=== PATIENT | female | born 1975 | race Caucasian/White ===

== ENCOUNTER 2016-02-16 12:08 | Inpatient (IN) | payer MEDICARE, MEDICAID ==
[~2016-02-16] VITALS: Ht 147.3 cm; Wt 47.9 kg
[~2016-02-16 12:08] MED LIST: *MAYHAVE; /LANS30GR; /MOM400 PO; /ONDA4TA; /SUCR1TA; CLARINEX PO; COLACE PO; FERR325T3 PO; OMEP20CA3 PO; PRIL20CA PO; TESS100C PO; TESSALO100 PO; TYLE325T5 PO; [UNRECOGNIZED DRUG - SUPPLY]; [UNRECOGNIZED DRUG - SUPPLY]; [UNRECOGNIZED DRUG - SUPPLY] [1,]
[2016-02-16] MEDS ORDERED: PANTOPRAZOLE 40MG INJ (PROTONIX) (C9113) As Ordered ONE ×2 (13:19→22:02)
[2016-02-16] MEDS ORDERED: ONDANSETRON 4MG/2ML VIAL (J2405) As Ordered ONE (13:20)
[2016-02-16] MEDS ORDERED: FERR325T3 PO (14:01)
[2016-02-16] MEDS ORDERED: OMEP20CA3 PO (14:01)
[2016-02-16 14:22] LABS: BASO % 0.2 % (0.0-1.0); EOS # 0.1 K/mm3 (0.0-0.50); EOS % 1.6 % (0.0-3.0); LARGE UNSTAINED CELL # 0.2 K/mm3 (0.0-0.4); LARGE UNSTAINED CELL % 2.7 % (0.0-4.0); LYMPH # 1.2 K/mm3 (1.5-4.5); LYMPH % 20.7 % (24.0-44.0); MEAN CORPUSCULAR HEMOGLOBIN 28.6 pg (27.0-33.0); MEAN CORPUSCULAR HGB CONC 33.7 g/dl (32.0-36.5); MEAN CORPUSCULAR VOLUME 84.7 fl (80.0-96.0); MONO # 0.2 K/mm3 (0.0-0.8); NEUTROPHILS % 70.7 % (36.0-66.0); PLATELET COUNT, AUTOMATED 320 k/mm3 (150-450); RED CELL DISTRIBUTION WIDTH 12.6 % (11.5-14.5); WHITE BLOOD COUNT 5.7 K/mm3 (4.0-10.0)
[2016-02-16 14:30] LABS: INR 1.24
[2016-02-16 14:39] LABS: ALBUMIN 3.1 GM/DL (3.2-5.2); ALBUMIN/GLOBULIN RATIO 0.94 (1.00-1.93); ALKALINE PHOSPHATASE 69 U/L (45-117); ALT/SGPT 14 U/L (12-78); ANION GAP 8 MEQ/L (8-16); AST/SGOT 6 U/L (15-37); BILIRUBIN,DIRECT < 0.1 MG/DL (0.0-0.2); BILIRUBIN,TOTAL 0.2 MG/DL (0.2-1.0); BLOOD UREA NITROGEN 12 MG/DL (7-18); CALCIUM LEVEL 7.9 MG/DL (8.5-10.1); CARBON DIOXIDE LEVEL 26 MEQ/L (21-32); CHLORIDE LEVEL 110 MEQ/L (98-107); CREATININE FOR GFR 0.55 MG/DL (0.55-1.02); GLOMERULAR FILTRATION RATE > 60.0 (>60); GLUCOSE, FASTING 92 MG/DL (70-105); POTASSIUM SERUM 3.9 MEQ/L (3.5-5.1); SODIUM LEVEL 144 MEQ/L (136-145); TOTAL PROTEIN 6.4 GM/DL (6.4-8.2)
[2016-02-16] MEDS: NS 1,000 ML IV SCH (15:07)
[2016-02-16] MEDS ORDERED: ONDANSETRON 4MG/2ML VIAL (J2405) IV PRN (15:15)
[2016-02-16] MEDS ORDERED: MORPHINE 2 MG/ML 1ML SYRINGE IV PRN (15:15)
[2016-02-16] MEDS ORDERED: ACETAMINOPHEN TAB 650MG DOSE (2X325MG) PO PRN (15:15)
--- NOTE | 2016-02-16 16:46 | REP ---
KUB: Single view. History: Abdominal pain. Small bowel obstruction. Comparison study June 10, 2008. Findings: The patient is rotated to the right. EKG monitoring electrodes overlie the abdomen. There is a ventriculoperitoneal shunt catheter looped or coiled within the right abdomen. There are several loops of air-filled but nondilated small bowel in the central abdomen. Air and stool is seen in a nondistended colon. The bowel gas pattern is felt to be unremarkable. Impression: Right ventriculoperitoneal shunt catheter noted. Normal bowel gas pattern. Signed by Denver Eldridge MD 02/16/2016 04:37 P
--- NOTE | 2016-02-16 17:11 | REP ---
Portable supine chest x-ray: Single view. History: Tachycardia. Comparison study: March 07, 2013. Findings: There is a heavily calcified tubing related to a ventriculoperitoneal shunt tubing projecting over the right chest as before. EKG monitoring electrodes overlie the chest. The lungs are symmetrically aerated and free of infiltrate. Cardiomediastinal silhouette is unremarkable. Impression: No active cardiopulmonary disease. Signed by Denver Eldridge MD 02/16/2016 05:35 P
--- NOTE | 2016-02-16 18:41 | HPE ---
DATE OF ADMISSION: TIME PATIENT WAS SEEN: 1500 PRIMARY CARE PROVIDER: Elizabeth Ramsey CHIEF COMPLAINT: Nausea and vomiting, and abdominal pain. HISTORY OF PRESENT ILLNESS: A 40-year-old female with a past medical history of cerebral palsy, hydrocephalus and a ventriculoperitoneal (WRAPPER AND PRESERVER) shunt, severe erosive esophagitis, gastroesophageal reflux disease (GERD. Also esophageal ulcer on esophagogastroduodenoscopy (EGD) in 2008, chronic anemia, presented with nausea, vomiting, and abdominal pain. Per patient's mother, it started about a week ago; however, it got much worse this morning. Patient had at least eight coffee-ground emesis this morning. She also has pain in the left lower quadrant. In addition, she has not had a bowel movement since Thursday. Last Thursday, patient's mother gave patient enema, which helped to produce a small amount of bowel movement; however, per patient, she has not passed any flatus since Thursday , and she has not been eating or drinking much over the past few days. Otherwise, patient denies any fevers or chills, any chest pain, trouble breathing, any problem with urination. ALLERGIES: No known drug allergies. HOME MEDICATIONS: - ferrous sulfate 325 mg one tablet by mouth twice a day - omeprazole 20 mg one tablet daily PAST SURGICAL HISTORY: Includes WRAPPER AND PRESERVER shunt placement. PAST MEDICAL HISTORY: As stated above, includin. Cerebral palsy. 2 Hydrocephalus and a WRAPPER AND PRESERVER shunt. 3. GERD. 4. Chronic anemia. 5. Severe erosive esophagitis and esophageal ulcer on esophagogastroduodenoscopy (EGD) 2008. 6. Hiatal hernia. 7. History of septic shock. SOCIAL HISTORY: Patient lives at home with her parents. Has been mostly bed- bound for years. Denies any smoking, drinking, or recreational drug use. FAMILY HISTORY: Father has diabetes. REVIEW OF SYSTEMS: GENERAL: Patient denies any weight changes, any fevers or chills, any recent traveling, sick contacts. HEENT: Denies any changes with vision, smell, hearing, taste. CARDIOVASCULAR: Denies any chest pain, trouble breathing. PULMONARY: Denies any trouble breathing. GASTROINTESTINAL: Admits to abdominal pains and also nausea and vomiting, coffee-ground emesis. Denies any diarrhea. Admits to constipation, not having had a bowel movement for the past 5 days. Denies any flatus. GENITOURINARY: Denies any problem with urination, any blood in the urine, burning on urination. MUSCULOSKELETAL: Denies any pain anywhere; however, patient does have contractions due to cerebral palsy and being bed-bound ENDOCRINE: Denies any diabetes or cold or heat intolerance. HEMATOLOGIC/ONCOLOGIC: Denies any bleeding or easy bruising. PSYCHIATRIC: Patient does have a somewhat underlying possibly mental retarding due to cerebral palsy. Otherwise denies any anxiety or depression. NEUROLOGIC: Patient does have hydrocephalus, had a WRAPPER AND PRESERVER shunt, and has contractions in all four extremities; however, she denies any change in sensation. PHYSICAL EXAMINATION: VITAL SIGNS: Blood pressure 151/94, pulse 108, respirations 20, temperature 97.8 , oxygen was saturating at 95% on room air. Weight was 47 kg, height was 165 cm. GENERAL: Patient is a thin-looking young female who was alert, awake, oriented times three, however, has slurred speech from cerebral palsy and has contractions of all four extremities. Appears to have at least mild mental retardation. HEENT: Normocephalic, atraumatic. Extraocular motor intact. Mucosa moist. NECK: Supple. No neck lymphadenopathy. CARDIOVASCULAR: Tachycardic, S1, S2. No murmurs. LUNGS: Clear to auscultation bilaterally. No wheezes, rales, or rhonchi. ABDOMEN: Positive bowel sounds. Soft, tender to palpation in left lower quadrant. Otherwise no peritoneal signs. No ecchymosis. EXTREMITIES: No edema, clubbing, or cyanosis. SKIN: Warm and dry. NEUROLOGIC: Cranial nerves II-XII intact. Patient has contractions in all four extremities; otherwise no focal neurologic deficit noted. LABORATORY DATA: WBC 5.7, hemoglobin 12.0, hematocrit 35.7 with platelet count of 320 and MCV of 84.7. Sodium 144, potassium 3.9, chloride 110, bicarbonate 26, BUN 12, creatinine 0.55 , GFR greater than 60, fasting glucose 92, calcium 7.9, magnesium 2. Total bilirubin 0.2, direct bilirubin 0.1, AST 6, ALT 14, alkaline phosphatase 69, total protein 6.4, albumin 3.1. PT 15.7, INR 1.24, PTT 31.3. Chest x-ray has been ordered. Shows normal chest. No active disease. Kidneys, ureter, bladder (KUB) has been ordered, and so far preliminary shows right WRAPPER AND PRESERVER shunt catheter noted. Normal bowel-gas pattern. Official result is pending. ASSESSMENT AND PLAN: A 40-year-old female with past medical history of cerebral palsy, hydrocephalus with a WRAPPER AND PRESERVER shunt, gastroesophageal reflux disease (GERD) , chronic anemia, severe erosive esophagitis and esophageal ulcer on EGD 2008, presented with: 1. Nausea, vomiting with coffee-ground emesis, possible gastrointestinal (GI) bleed. Patient has been placed nothing by mouth. Fecal occult has been ordered. General surgery has been consulted. We appreciated Dr. Gallego's help. Patient had a KUB that showed normal bowel-gas pattern; however, she has been vomiting non-stop since the morning, and nasogastric (NG) tube was placed with a 150 mL of coffee-ground emesis output. She ended up not able to tolerate the NG tube, which has to be removed. Otherwise, will continue patient on 100 mL per hour of normal saline and will continue to follow general surgery recommendations. Pain management with morphine 1 mg intravenous (IV) every 2 hours as needed and continue Zofran and 40 mg of IV Protonix twice a day. Continue to monitor patient's output and will perform serial abdominal exams. 2. Cerebral palsy and hydrocephalus with a WRAPPER AND PRESERVER shunt. Will continue aspiration precautions. Due to patient does not seem to be able to protect her airway due to she does not move well herself and her limbs are contracted. She also does seem to have at least mild mental retardation from cerebral palsy. Will continue to monitor her closely. 3. Severe erosive esophagitis and esophageal ulcer on esophagogastroduodenoscopy (EGD) 2008. Also hiatal hernia and GERD. Will continue IV Protonix and continue to monitor patient. Will place patient nothing by mouth at this moment. 4. Chronic anemia. Hemoglobin is 12; however, due to coffee-ground emesis, will trend the patient's hemoglobin and hematocrit every 6 hours until tomorrow. General surgery has been consulted. Will continue to monitor. Will hold off on any anticoagulation for now and place patient on sequential compression devices (SCDs). 5. Deep vein thrombosis (DVT) prophylaxis with SCDs and thromboembolic deterrent stockings (TEDS) only for now. DISPOSITION: Patient has coffee-ground emesis, possible gastrointestinal (GI) bleed, possible small-bowel obstruction. General surgery, Dr. Gallego, has been consulted. Will follow his recommendations. Patient has been discussed with attending doctor, Dr. Ballard. My preceptor for this patient encounter was Dr. Elizabeth Ballard. The preceptor was physically present in the building during the encounter and was fully available as needed. All aspects of the patient interview, examination, medical decision making process, and medical care plan development were reviewed and approved by the preceptor. The preceptor is aware and concurs with the plan as stated in the body of this note and will attest to such by his/her co-signature. I, Elizabeth Ballard, have seen and examined the above patient and agree with the plan as documented by Dr. Qureshi. SHAWNA
[2016-02-16] MEDS: PANTOPRAZOLE 40MG INJ (PROTONIX) (C9113) IV SCH (21:00)
[2016-02-16] MEDS ORDERED: PANTOPRAZOLE 40MG TAB (PROTONIX) PO SCH (21:00)
--- NOTE | 2016-02-16 23:04 | ECGEPIP ---
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
--- NOTE | 2016-02-16 23:46 | EDDOCDS ---
Physician Documentation [facility] Name: Molly Valera Age: 40 yrs Sex: Female : 1975 Arrival Date: 02/16/2016 Time: 12:08 Bed 5 Private MD: Elizabeth Ramsey PA-C Disposition: 02/15 15:16 Critical Care:. pc Disposition: 02/16/16 15:17 Hospitalization ordered by Elizabeth Ballard for Inpatient Admission. Preliminary diagnosis are Gastrointestinal hemorrhage, unspecified - upper, Tachycardia, unspecified. - Bed requested for M ICU. - Status is Inpatient Admission. yuridia - Condition is Stable. - Problem is new. - Symptoms have improved. HPI: 13:09 This 40 yrs old Female presents to ER via Wheelchair with complaints of pc Nausea/Vomiting. 13:09 The history is obtained from the patient's family/friend. pc 13:10 A reliable history and/or examination was not able to be obtained, due to patient is pc non-verbal. 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 She has had a poor appetite all week, complaining of her stomach hurting. She started to have the same emesis this morning and presents with active coffee-ground emesis. She has had a slight cough but no fevers, and otherwise has been in good health. At their worst, the symptoms were moderate. In the emergency department, the symptoms are unchanged. The patient has not experienced similar symptoms in the past. The patient has been recently seen by their primary care provider, for a routine, regularly scheduled appointment. Historical: - Allergies: no known allergies; - Home Meds: 1. omeprazole 20 mg Oral cpDR 1 cap once daily (Last dose: 02/16/2016 09:00) 2. 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 - Social history: Smoking status: Patient states was never smoker of tobacco. No barriers to communication noted, Speaks appropriately for age. - : The pt / caregiver states he / she is not on anticoagulants. Home medication list is obtained from the caregiver. - Hospitalizations: : No recent hospitalization is reported. - Exposure Risk Screening:: None identified. - Immunization history:: All immunizations up-to-date. - Family history: Not pertinent. - Social history:: the patient is a non-smoker, the patient does not drink alcohol. 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 pc Exam: 13:13 General Appearance: alert, the patient is in mild distress, actively vomiting pc coffee-ground material without dave blood.. 13:13 EENT: normal eye inspection, ears, nose and throat normal, pharynx normal, mucous membranes moist 13:13 Neck: The exam reveals no acute abnormalities. ROM is normal and painless. No nuchal rigidity is noted.. 13:13 Respiratory: no respiratory distress, normal breath sounds. 13:13 CVS: regular rhythm, normal S1 and S2, no murmurs, strong peripheral pulses, the patient is tachycardic, at 128 bpm. 13:13 Abdomen: soft, no organomegaly, normal bowel sounds, mild tenderness in the epigastric area. 13:13 Back: normal inspection. 13:13 Skin: skin color is normal, warm, dry. 13:13 Extremities: The extremities have a grossly normal appearance, are non-tender, without acute ROM abnormalities. 13:13 Neuro: no motor deficits, no sensory deficits. Vital Signs: 12:12 BP 137 / 75; Pulse 128; Resp 20 S; Temp 97.8(T); Pulse Ox 98% on R/A; Weight 47.63 kg / gr2 105.01 lbs (R); Height 5 ft. 5 in. (165.10 cm) (R); Pain 4/10; 12:35 BP 147 / 85 (auto/); dsf 12:36 Pulse 110 MON; Pulse Ox 96% ; dsf 12:50 BP 165 / 109 (auto/); dsf 12:50 Pulse 114 MON; Pulse Ox 90% ; dsf 13:19 Pulse 112 MON; dsf 13:20 BP 131 / 101 (auto/); dsf 13:35 BP 159 / 88 (auto/); dsf 13:35 Pulse 116 MON; Pulse Ox 95% ; dsf 13:50 BP 156 / 94 (auto/); dsf 13:50 Pulse 108 MON; Pulse Ox 93% ; dsf 14:05 BP 153 / 97 (auto/); dsf 14:05 Pulse 108 MON; Pulse Ox 94% ; dsf 14:20 BP 150 / 92 (auto/); dsf 14:20 Pulse 108 MON; Pulse Ox 92% ; dsf 14:35 BP 151 / 94 (auto/); dsf 14:35 Pulse 108 MON; Pulse Ox 95% ; dsf 14:50 BP 158 / 96 (auto/); dsf 14:50 Pulse 104 MON; Pulse Ox 96% ; dsf 15:05 BP 159 / 93 (auto/); dsf 15:05 Pulse 100 MON; Pulse Ox 96% ; dsf 15:20 BP 150 / 101 (auto/); dsf 15:20 Pulse 100 MON; Pulse Ox 94% ; dsf 15:35 BP 156 / 109 (auto/); dsf 15:35 Pulse 128 MON; dsf 15:49 Pulse 150 MON; dsf 15:50 BP 161 / 96 (auto/); dsf 16:05 BP 135 / 80 (auto/); dsf 16:05 Pulse 122 MON; Pulse Ox 94% ; dsf 16:20 BP 132 / 77 (auto/); dsf 16:20 Pulse 110 MON; Pulse Ox 93% ; dsf 16:35 BP 136 / 76 (auto/); dsf 16:35 Pulse 106 MON; Pulse Ox 95% ; dsf 16:50 BP 133 / 79 (auto/); dsf 16:50 Pulse 102 MON; Pulse Ox 94% ; dsf 17:05 BP 140 / 78 (auto/); dsf 17:05 Pulse 100 MON; Pulse Ox 94% ; dsf 17:20 BP 140 / 81 (auto/); dsf 17:20 Pulse 102 MON; Pulse Ox 94% ; dsf 17:35 BP 129 / 78 (auto/); lf1 17:35 Pulse 104 MON; Pulse Ox 95% ; lf1 17:50 BP 136 / 78 (auto/); lf1 17:50 Pulse 100 MON; Pulse Ox 94% ; lf1 18:04 Pulse 100 MON; Pulse Ox 93% ; lf1 18:05 BP 136 / 77 (auto/); lf1 18:19 Pulse 100 MON; Pulse Ox 92% ; lf1 18:20 BP 128 / 69 (auto/); lf1 18:34 Pulse 100 MON; Pulse Ox 92% ; lf1 18:35 BP 120 / 70 (auto/); lf1 18:49 Pulse 104 MON; Pulse Ox 92% ; lf1 18:50 BP 121 / 68 (auto/); lf1 19:02 Pulse 98 MON; Pulse Ox 90% ; lf1 19:05 BP 129 / 67 (auto/); lf1 19:16 Pulse 100 MON; Resp 18; Pulse Ox 90% ; lf1 19:20 BP 128 / 68 (auto/); lf1 19:20 Pulse 100 MON; Pulse Ox 89% ; lf1 19:35 BP 125 / 61 (auto/); lf1 19:35 Pulse 98 MON; Pulse Ox 89% ; lf1 19:50 BP 132 / 68 (auto/); lf1 19:50 Pulse 98 MON; Pulse Ox 88% ; lf1 20:05 BP 138 / 75 (auto/); lf1 20:05 Pulse 104 MON; lf1 20:20 BP 139 / 76 (auto/); lf1 20:20 Pulse 104 MON; lf1 20:35 BP 143 / 80 (auto/); lf1 20:35 Pulse 100 MON; lf1 20:50 BP 135 / 73 (auto/); lf1 20:50 Pulse 100 MON; Pulse Ox 96% ; lf1 21:05 BP 131 / 70 (auto/); lf1 21:05 Pulse 96 MON; Pulse Ox 93% ; lf1 21:20 BP 126 / 67 (auto/); lf1 21:20 Pulse 104 MON; Pulse Ox 93% ; lf1 21:35 BP 129 / 67 (auto/); lf1 21:35 Pulse 102 MON; Pulse Ox 93% ; lf1 21:50 BP 119 / 66 (auto/); lf1 21:50 Pulse 102 MON; Pulse Ox 90% ; lf1 22:05 BP 141 / 72 (auto/); lf1 22:05 Pulse 102 MON; Pulse Ox 91% ; lf1 22:17 Pulse 102 MON; Resp 16; Pulse Ox 90% ; lf1 23:25 BP 119 / 68; Pulse 98; Resp 20; Temp 98.6(TE); Pulse Ox 95% on R/A; jmv 12:12 Body Mass Index 17.47 (47.63 kg, 165.10 cm) gr2 MDM: 13:08 IV Saline Lock ordered. pc 13:08 Pipeline Engineer/Pulse Ox/q 30 min VS ordered. pc 13:08 pantoprazole 80 mg IV at bolus once ordered. pc 13:08 NS 0.9% 1000 ml IV at bolus once ordered. pc 13:08 Ondansetron 4 mg IVP once ordered. pc 13:09 NOTHING BY MOUTH+DIET ordered. EDMS 13:09 CBC with Diff Ordered. EDMS 13:09 MED Profile Ordered. EDMS 13:09 Liver Profile Ordered. EDMS 13:09 Pt & Aptt Ordered. EDMS 13:09 Type & Screen Ordered. EDMS 13:13 Differential Diagnosis: UGI bleed, known esophagitis. Plan: labs, meds, IVF. pc 13:31 [facility] Payment Agreement was scanned into [employer] and attached to record. [id number] 13:32 Financial registration complete. dm19 14:36 CBC with Diff Reviewed. pc 14:36 Pt & Aptt Reviewed. pc 14:47 MED Profile Reviewed. pc 14:47 Liver Profile Reviewed. pc 14:52 BED REQUEST+ADM ordered. EDMS 14:52 Data reviewed: old medical records, vital signs, nurses notes, lab test results, all pc radiology studies and available results. Test interpretation: LAB - all labs as ordered have been reviewed, interpreted and considered in the overall management of the clinical presentation;. 14:54 Chest, 1 View Ordered. EDMS 14:54 ECG WITH READING ER PHYS+CARDIAG ordered. EDMS 15:07 HEMOGLOBIN & HEMATOCRIT Ordered. EDMS 15:07 Test interpretation: EKG. pc 15:16 Test interpretation: X-RAY - interpreted by Radiologist and personally reviewed, 1 view pc chest no acute disease. The patient has been re-examined and re-evaluated. The patient's symptoms have markedly improved after treatment. Physician consultation: Dr. Brian Gallego MD regarding consult, and will see patient in inpatient room. 15:16 Physician consultation: Dr. Elizabeth Ballard regarding admission. Disposition: The historical points, examination findings, and any diagnostic results supporting the provided diagnosis, were discussed with the patient or legal guardian. The need for further work-up and/or treatment in the hospital was explained. 15:30 MAGNESIUM LEVEL Ordered. EDMS 16:02 Abdomen,Flat Plate KUB Ordered. EDMS 16:33 Admission / Observation Status ordered. EDMS 19:31 CBC WITH DIFFERENTIAL Ordered. EDMS 19:32 BASIC METABOLIC PROFILE Ordered. EDMS 19:32 MAGNESIUM LEVEL Ordered. EDMS 19:32 HEMOGLOBIN & HEMATOCRIT Ordered. EDMS 19:32 HEMOGLOBIN & HEMATOCRIT Ordered. EDMS 23:43 MRSA SCREEN Ordered. EDMS EC:07 Rate is 102 beats/min. Rhythm is regular, Sinus tachycardia. QRS [place] is Normal. MD pc interval is normal. QRS interval is normal. QT interval is normal. No Q waves. T waves are Normal. No ST changes noted. Clinical impression: Sinus tachycardia. Administered Medications: 13:25 Drug: NS 0.9% 1000 ml [sodium chloride 0.9 % injection solution] Route: IV; Rate: jf3 bolus; Site: left hand; 17:53 Follow up: IV Status: Completed infusion; IV Intake: 1000ml dsf 13:27 Drug: Ondansetron 4 mg [ondansetron HCl 2 mg/mL intravenous solution (2 mL)] Route: jf3 IVP; Site: left hand; 13:30 Drug: pantoprazole 80 mg [pantoprazole 40 mg intravenous solution] Route: IV; Rate: jf3 bolus; Site: left hand; 18:36 Follow up: IV Status: Completed infusion dsf Critical Care Time: 15:16 Critical care time: Bedside Care: 20 minutes, Consultation: 20 minutes, Family pc Intervention: 10 minutes. Total time: 50 minutes Signatures: Dispatcher [employer] EDNH Brent Nevarez MD MD pc Newman, Jill New, RN RN jan Lopresti, Mary-Elizabeth, Extension Professor Unit ml3 Mali Rivera RN RN jc4 McLear, Diane dm19 Kiki Bailon RN f [place] RN jf3 The chart was reviewed and I authenticate all verbal orders and agree with the evaluation and treatment provided.Corrections: (The following items were deleted from the chart) 15:09 15:07 HEMOGLOBIN & HEMATOCRIT ordered. EDMS EDMS 15:30 15:07 MAGNESIUM LEVEL ordered. EDMS EDMS Attachments: 13:31 [facility] [place] [facility] Payment Agreement [id number]
--- NOTE | 2016-02-16 23:47 | EDDOCDS ---
Nurse's Notes [facility] Name: Lluvia Galarza Age: 40 yrs Sex: Female : 1975 Arrival Date: 02/16/2016 Time: 12:08 Bed 5 Private MD: Elizabeth Ramsey PA-C Diagnosis: Gastrointestinal hemorrhage, unspecified-upper;Tachycardia, unspecified Presentation: 02/15 12:14 Presenting complaint: Mother states: that patient has been vomiting for the past week. jc4 Emesis has coffee ground appearance. Actively vomiting in triage. 12:21 Adult Sepsis Screening: The patient does not have new or worsening altered mentation. jc4 Patient's respiratory rate is less than 22. Systolic blood pressure is greater than 100. Patient has a qSOFA score of 0- Negative Sepsis Screen. Suicide/Homicide risk assessment- the patient denies having any suicidal and/or homicidal ideations and does not present with any other emotional, behavioral or mental health complaints. Status: Patient is not a services coordinator or dependent. Transition of care: patient was not received from another setting of care. 12:21 Acuity: KAUSHIK Level 3 jc4 12:21 Method Of Arrival: Wheelchair jc4 Triage Assessment: 12:20 General: Appears distressed, Behavior is anxious. Pain: Location: abdomen. HIV jc4 screening NA for this visit. SOA ARCHITECT: 12:20 LMP 01/27/2016 jc4 Historical: - Allergies: no known allergies; - Home Meds: 1. omeprazole 20 mg Oral cpDR 1 cap once daily (Last dose: 02/16/2016 09:00) 2. ferrous sulfate 325 mg (65 mg iron) oral TbEC twice a day (Last dose: 02/16/2016 09:00) - PMHx: Anemia; GERD; Hydrocephalus; Severe erosive esophagitis and esophageal ulcers on EGD 2008; Hiatal Hernia; - PSHx: EDUCATIONAL PARAPROFESSIONAL Shunt Placement; - The history from nurses notes was reviewed: and elements of the historical information I have obtained differs from that reported to nursing. - Social history: Smoking status: Patient states was never smoker of tobacco. No barriers to communication noted, Speaks appropriately for age. - : The pt / caregiver states he / she is not on anticoagulants. Home medication list is obtained from the caregiver. - Hospitalizations: : No recent hospitalization is reported. - Exposure Risk Screening:: None identified. - Immunization history:: All immunizations up-to-date. - Family history: Not pertinent. - Social history:: the patient is a non-smoker, the patient does not drink alcohol. Screenin:17 Screening information is obtained from family members. Fall risk: At risk due to lf1 immobility, The following interventions are performed due to a positive Fall Risk Screen: Fall Risk is added to Special Handling on the patient Summary Screen. A Fall Risk Bracelet was applied to the patient. Side Rails are placed in the up position. A Call Brooks is given with instruction to call for help when getting out of bed. Fall Alert bracelet is placed on the patient. Assistance ADL's: Requires assistance with meal preparation, this assistance is provided by family members, bathing, assistance is provided by family members, dressing, assistance is provided by family members, toileting, assistance is provided by family members, ambulation, assistance is provided by family members, housework, assistance is provided by family members, medication administration, assistance is provided by family members. Abuse/DV Screen:. home support is adequate. 23:36 Abuse/DV Screen:. lf1 23:36 Abuse/DV Screen: The patient / caregiver reports he/she is: not in a situation that lf1 causes fear, pain or injury. Nutritional screening: On soft. Advance Directives: Currently, there is a health care proxy, Jessie (mother). Assessment: 12:41 General: Appears in no apparent distress, Behavior is appropriate for age. Pain: dsf Location: abdomen Quality of pain is described as "hurts really bad". Neurological: Level of Consciousness is awake, alert. Cardiovascular: Capillary refill < 3 seconds Heart tones S1 S2 present Rhythm is sinus tachycardia No ectopy. Respiratory: Airway is patent Respiratory effort is even, unlabored, Respiratory pattern is regular, symmetrical, Breath sounds are clear bilaterally. GI: Abdomen is distended, other coffee brown emesis in basin Bowel sounds hypoactive in left upper quadrant and left lower quadrant Abd is soft X 4 quads Abd is tender to palpation in right upper quadrant and left upper quadrant Parent/caregiver reports the patient having vomiting for the past week. mother states it did get better but started again last night. Derm: Skin is pink, warm & dry. 13:41 General: Appears in no apparent distress, Behavior is appropriate for age. dsf Neurological: Level of Consciousness is awake, alert. Cardiovascular: Capillary refill < 3 seconds Rhythm is sinus tachycardia No ectopy. Respiratory: Airway is patent Respiratory effort is even, unlabored, Respiratory pattern is regular, symmetrical. Derm: Skin is pink, warm & dry. 14:42 General: Appears in no apparent distress, Behavior is appropriate for age. General: pt dsf does drawn knees up to abdomen when it hurts . Pain: Location: abdomen. Neurological: Level of Consciousness is awake, alert. Cardiovascular: Capillary refill < 3 seconds Heart tones S1 S2 present Rhythm is sinus tachycardia No ectopy. Respiratory: Airway is patent Respiratory effort is even, unlabored, Respiratory pattern is regular, symmetrical, Breath sounds are clear bilaterally. GI: Abdomen is distended, Bowel sounds present X 4 quads. Abd is soft X 4 quads Abd is tender to palpation in right upper quadrant, left upper quadrant and right lower quadrant. Derm: Skin is pink, warm & dry. 15:48 General: Dr. Qureshi placed a 14 luxembourgish NG tube to left nare. Coffee ground emesis dsf suctioning out of stomach. 15:56 General: Dr. Qureshi removed NG tube pt was producing tons of oral secretions . dsf 16:49 Adult Sepsis Screening: The patient does not have new or worsening altered mentation. dsf Patient's respiratory rate is less than 22. Systolic blood pressure is greater than 100. Patient has a qSOFA score of 0- Negative Sepsis Screen. General: Appears in no apparent distress, Behavior is appropriate for age. Pain: Location: abdomen. Neurological: Level of Consciousness is awake, alert. Cardiovascular: Capillary refill < 3 seconds. Respiratory: Airway is patent Respiratory effort is even, unlabored, Respiratory pattern is regular, symmetrical. Derm: Skin is pink, warm & dry. 17:49 General: Appears in no apparent distress, Behavior is appropriate for age. dsf Neurological: Level of Consciousness is awake, alert. Cardiovascular: Capillary refill < 3 seconds Rhythm is sinus tachycardia No ectopy. Respiratory: Airway is patent Respiratory effort is even, unlabored, Respiratory pattern is regular, symmetrical. Derm: Skin is pink, warm & dry. 18:35 Adult Sepsis Screening: The patient does not have new or worsening altered mentation. dsf Patient's respiratory rate is less than 22. Systolic blood pressure is greater than 100. Patient has a qSOFA score of 0- Negative Sepsis Screen. General: Appears in no apparent distress, Behavior is appropriate for age. Neurological: Level of Consciousness is awake, alert. Cardiovascular: Capillary refill < 3 seconds. Respiratory: Airway is patent Respiratory effort is even, unlabored, Respiratory pattern is regular, symmetrical. Derm: Skin is pink, warm & dry. 19:16 General: Appears in no apparent distress, Behavior is cooperative. Neurological: Level lf1 of Consciousness is awake, alert. Respiratory: Respiratory effort is even, unlabored. GI: Abdomen is distended, Bowel sounds Abd is tender to palpation. Derm: Skin is normal. 20:30 General: Appears in no apparent distress, family at bedside. Neurological: Level of lf1 Consciousness is awake. Respiratory: Respiratory effort is even, unlabored. GI: Abdomen is distended. : Attends in place. Derm: Skin is normal. 22:21 Adult Sepsis Screening: The patient does not have new or worsening altered mentation. lf1 Patient's respiratory rate is less than 22. Systolic blood pressure is greater than 100. Patient has a qSOFA score of 0- Negative Sepsis Screen. General: Appears in no apparent distress. General: family at bedside. Pain: Denies pain. Neurological: Level of Consciousness is awake, alert. Cardiovascular: Rhythm is regular. Respiratory: Respiratory effort is even, unlabored. GI: Abdomen is distended, other no episodes of vomiting since removal of NG tube. 23:36 General: Appears in no apparent distress, Behavior is cooperative. Neurological: Level lf1 of Consciousness is awake, alert. EENT: No deficits noted. Cardiovascular: Rhythm is regular. Respiratory: Respiratory effort is even, unlabored. GI: Abdomen is distended, Bowel sounds. Derm: Skin is normal. Musculoskeletal: contracted. Vital Signs: 12:12 BP 137 / 75; Pulse 128; Resp 20 S; Temp 97.8(T); Pulse Ox 98% on R/A; Weight 47.63 kg gr2 (R); Height 5 ft. 5 in. (165.10 cm) (R); Pain 4/10; 12:35 BP 147 / 85 (auto/); dsf 12:36 Pulse 110 MON; Pulse Ox 96% ; dsf 12:50 BP 165 / 109 (auto/); dsf 12:50 Pulse 114 MON; Pulse Ox 90% ; dsf 13:19 Pulse 112 MON; dsf 13:20 BP 131 / 101 (auto/); dsf 13:35 BP 159 / 88 (auto/); dsf 13:35 Pulse 116 MON; Pulse Ox 95% ; dsf 13:50 BP 156 / 94 (auto/); dsf 13:50 Pulse 108 MON; Pulse Ox 93% ; dsf 14:05 BP 153 / 97 (auto/); dsf 14:05 Pulse 108 MON; Pulse Ox 94% ; dsf 14:20 BP 150 / 92 (auto/); dsf 14:20 Pulse 108 MON; Pulse Ox 92% ; dsf 14:35 BP 151 / 94 (auto/); dsf 14:35 Pulse 108 MON; Pulse Ox 95% ; dsf 14:50 BP 158 / 96 (auto/); dsf 14:50 Pulse 104 MON; Pulse Ox 96% ; dsf 15:05 BP 159 / 93 (auto/); dsf 15:05 Pulse 100 MON; Pulse Ox 96% ; dsf 15:20 BP 150 / 101 (auto/); dsf 15:20 Pulse 100 MON; Pulse Ox 94% ; dsf 15:35 BP 156 / 109 (auto/); dsf 15:35 Pulse 128 MON; dsf 15:49 Pulse 150 MON; dsf 15:50 BP 161 / 96 (auto/); dsf 16:05 BP 135 / 80 (auto/); dsf 16:05 Pulse 122 MON; Pulse Ox 94% ; dsf 16:20 BP 132 / 77 (auto/); dsf 16:20 Pulse 110 MON; Pulse Ox 93% ; dsf 16:35 BP 136 / 76 (auto/); dsf 16:35 Pulse 106 MON; Pulse Ox 95% ; dsf 16:50 BP 133 / 79 (auto/); dsf 16:50 Pulse 102 MON; Pulse Ox 94% ; dsf 17:05 BP 140 / 78 (auto/); dsf 17:05 Pulse 100 MON; Pulse Ox 94% ; dsf 17:20 BP 140 / 81 (auto/); dsf 17:20 Pulse 102 MON; Pulse Ox 94% ; dsf 17:35 BP 129 / 78 (auto/); lf1 17:35 Pulse 104 MON; Pulse Ox 95% ; lf1 17:50 BP 136 / 78 (auto/); lf1 17:50 Pulse 100 MON; Pulse Ox 94% ; lf1 18:04 Pulse 100 MON; Pulse Ox 93% ; lf1 18:05 BP 136 / 77 (auto/); lf1 18:19 Pulse 100 MON; Pulse Ox 92% ; lf1 18:20 BP 128 / 69 (auto/); lf1 18:34 Pulse 100 MON; Pulse Ox 92% ; lf1 18:35 BP 120 / 70 (auto/); lf1 18:49 Pulse 104 MON; Pulse Ox 92% ; lf1 18:50 BP 121 / 68 (auto/); lf1 19:02 Pulse 98 MON; Pulse Ox 90% ; lf1 19:05 BP 129 / 67 (auto/); lf1 19:16 Pulse 100 MON; Resp 18; Pulse Ox 90% ; lf1 19:20 BP 128 / 68 (auto/); lf1 19:20 Pulse 100 MON; Pulse Ox 89% ; lf1 19:35 BP 125 / 61 (auto/); lf1 19:35 Pulse 98 MON; Pulse Ox 89% ; lf1 19:50 BP 132 / 68 (auto/); lf1 19:50 Pulse 98 MON; Pulse Ox 88% ; lf1 20:05 BP 138 / 75 (auto/); lf1 20:05 Pulse 104 MON; lf1 20:20 BP 139 / 76 (auto/); lf1 20:20 Pulse 104 MON; lf1 20:35 BP 143 / 80 (auto/); lf1 20:35 Pulse 100 MON; lf1 20:50 BP 135 / 73 (auto/); lf1 20:50 Pulse 100 MON; Pulse Ox 96% ; lf1 21:05 BP 131 / 70 (auto/); lf1 21:05 Pulse 96 MON; Pulse Ox 93% ; lf1 21:20 BP 126 / 67 (auto/); lf1 21:20 Pulse 104 MON; Pulse Ox 93% ; lf1 21:35 BP 129 / 67 (auto/); lf1 21:35 Pulse 102 MON; Pulse Ox 93% ; lf1 21:50 BP 119 / 66 (auto/); lf1 21:50 Pulse 102 MON; Pulse Ox 90% ; lf1 22:05 BP 141 / 72 (auto/); lf1 22:05 Pulse 102 MON; Pulse Ox 91% ; lf1 22:17 Pulse 102 MON; Resp 16; Pulse Ox 90% ; lf1 23:25 BP 119 / 68; Pulse 98; Resp 20; Temp 98.6(TE); Pulse Ox 95% on R/A; jmv 12:12 Body Mass Index 17.47 (47.63 kg, 165.10 cm) gr2 Vitals: 12:12 Log In Time: February 16, 2016 at 12:12. RN notified that patient meets Red Flag gr2 criteria. ED Course: 12:12 Patient visited by Hailey Cha. gr2 12:12 Elizabeth Ramsey is Private Physician. gr2 12:12 Patient moved to Waiting gr2 12:14 Patient visited by Hailey Cha. gr2 12:14 Patient moved to Pre RCE gr2 12:22 Triage Initiated jc4 12:26 Patient moved to 5 dem1 12:42 Inserted saline lock: 20 gauge in left hand The patient tolerated the procedure well. dsf 12:43 Patient visited by Kiki Bailon RN. dsf 12:43 Patient visited by Kiki Bailon RN. dsf 12:43 The patient / caregiver is instructed regarding the plan of care and ED course. Patient dsf has correct armband on for positive identification. Placed in gown. Bed in low position. Call light in reach. Side rails up X2. shelter monitor on. Pulse ox on. NIBP on. 13:07 Brent Nevarez MD is Attending Physician. pc 13:07 Patient visited by Brent Nevarez MD. pc 13:31 [facility] Payment Agreement was scanned into [employer] and attached to record. dm19 13:40 Patient visited by Bar Groves RN. jf3 14:20 Type & Screen Sent. dsf 14:20 Pt & Aptt Sent. dsf 14:20 Liver Profile Sent. dsf 14:20 MED Profile Sent. dsf 14:20 CBC with Diff Sent. dsf 14:40 Patient visited by Zarina Wong PCA. ct3 14:44 Patient visited by Kiki Bailon RN. dsf 15:08 EKG done. (by ED staff). Reviewed by Brent Nevarez MD. ct3 15:10 Patient visited by Zarina Wong PCA. ct3 15:17 Elizabeth Ballard is Hospitalizing Provider. pc 15:56 Patient visited by Kiki Bailon RN. dsf 16:50 Patient visited by Kiki Bailon RN. dsf 16:59 Patient moved to Admit Hold kpj 17:10 Abdomen,Flat Plate KUB Returned. EDMS 17:29 Patient visited by Kiki Bailon RN. dsf 17:51 Chest, 1 View Returned. EDMS 17:52 Patient visited by Kiki Bailon RN. dsf 18:36 Patient visited by Kiki Bailon RN. dsf 19:05 Patient visited by Abhishek Calloway PCA. kb5 19:20 Patient visited by Aleida Benoit RN. lf1 20:38 Patient moved to 5 ml3 22:02 Patient visited by Abhishek Calloway PCA. kb5 22:18 Patient visited by Aleida Benoit RN. lf1 22:21 Turned pillows under back and between legs. lf1 22:23 Patient visited by Aleida Benoit RN. lf1 23:26 Patient visited by Dylan Mai PCA. jmv 23:36 No procedures done that require assistance. lf1 23:42 EKG-ADULT Returned. EDMS Administered Medications: 13:25 Drug: NS 0.9% 1000 ml [sodium chloride 0.9 % injection solution] Route: IV; Rate: jf3 bolus; Site: left hand; 17:53 Follow up: IV Status: Completed infusion; IV Intake: 1000ml dsf 13:27 Drug: Ondansetron 4 mg [ondansetron HCl 2 mg/mL intravenous solution (2 mL)] Route: jf3 IVP; Site: left hand; 13:30 Drug: pantoprazole 80 mg [pantoprazole 40 mg intravenous solution] Route: IV; Rate: jf3 bolus; Site: left hand; 18:36 Follow up: IV Status: Completed infusion dsf Intake: 17:53 IV: 1000.00ml; Total: 1000.00ml. dsf Order Results: Lab Order: CBC with Diff; SPEC'M 02/16/16 14:18 Test: WHITE BLOOD COUNT; Value: 5.7; Range: 4.0-10.0; Units: K/mm3; Status: F Test: RED BLOOD COUNT; Value: 4.21; Range: 4.00-5.40; Units: M/mm3; Status: F Test: HEMOGLOBIN; Value: 12.0; Range: 12.0-16.0; Units: g/dl; Status: F Test: HEMATOCRIT; Value: 35.7; Range: 36.0-47.0; Abnormal: Below low normal; Units: %; Status: F Test: MEAN CORPUSCULAR VOLUME; Value: 84.7; Range: 80.0-96.0; Units: fl; Status: F Test: MEAN CORPUSCULAR HEMOGLOBIN; Value: 28.6; Range: 27.0-33.0; Units: pg; Status: F Test: MEAN CORPUSCULAR HGB CONC; Value: 33.7; Range: 32.0-36.5; Units: g/dl; Status: F Test: RED CELL DISTRIBUTION WIDTH; Value: 12.6; Range: 11.5-14.5; Units: %; Status: F Test: PLATELET COUNT, AUTOMATED; Value: 320; Range: 150-450; Units: k/mm3; Status: F Test: NEUTROPHILS %; Value: 70.7; Range: 36.0-66.0; Abnormal: Above high normal; Units: %; Status: F Test: LYMPH %; Value: 20.7; Range: 24.0-44.0; Abnormal: Below low normal; Units: %; Status: F Test: MONO %; Value: 4.0; Range: 0.0-5.0; Units: %; Status: F Test: EOS %; Value: 1.6; Range: 0.0-3.0; Units: %; Status: F Test: BASO %; Value: 0.2; Range: 0.0-1.0; Units: %; Status: F Test: LARGE UNSTAINED CELL %; Value: 2.7; Range: 0.0-4.0; Units: %; Status: F Test: NEUTROPHILS #; Value: 4.0; Range: 1.8-7.7; Units: K/mm3; Status: F Test: LYMPH #; Value: 1.2; Range: 1.5-4.5; Abnormal: Below low normal; Units: K/mm3; Status: F Test: MONO #; Value: 0.2; Range: 0.0-0.8; Units: K/mm3; Status: F Test: EOS #; Value: 0.1; Range: 0.0-0.50; Units: K/mm3; Status: F Test: BASO #; Value: 0.0; Range: 0.0-0.2; Units: K/mm3; Status: F Test: LARGE UNSTAINED CELL #; Value: 0.2; Range: 0.0-0.4; Units: K/mm3; Status: F Lab Order: MED Profile; SPEC02/16/16 14:17 Test: GLUCOSE, FASTING; Value: 92; Range: 70-105; Units: MG/DL; Status: F Test: BLOOD UREA NITROGEN; Value: 12; Range: 7-18; Units: MG/DL; Status: F Test: CREATININE FOR GFR; Value: 0.55; Range: 0.55-1.02; Units: MG/DL; Status: F Test: GLOMERULAR FILTRATION RATE; Value: > 60.0; Range: >60; Status: F Test: SODIUM LEVEL; Value: 144; Range: 136-145; Units: MEQ/L; Status: F Test: POTASSIUM SERUM; Value: 3.9; Range: 3.5-5.1; Units: MEQ/L; Status: F Test: CHLORIDE LEVEL; Value: 110; Range: 98-107; Abnormal: Above high normal; Units: MEQ/L; Status: F Test: CARBON DIOXIDE LEVEL; Value: 26; Range: 21-32; Units: MEQ/L; Status: F Test: ANION GAP; Value: 8; Range: 8-16; Units: MEQ/L; Status: F Test: CALCIUM LEVEL; Value: 7.9; Range: 8.5-10.1; Abnormal: Below low normal; Units: MG/DL; Status: F Test Note: ; Units are mL/min/1.73 m2 Chronic Kidney Disease Staging per NKF: Stage I & II GFR >=60 Normal to Mildly Decreased Stage III GFR 30-59 Moderately Decreased Stage IV GFR 15-29 Severely Decreased Stage V GFR <15 Very Little GFR Left ESRD GFR <15 on [employer] Test: MAGNESIUM LEVEL; Range: 1.8-2.4; Units: MG/DL; Status: I Lab Order: Liver Profile; SPEC'02/16/16 14:17 Test: AST/SGOT; Value: 6; Range: 15-37; Abnormal: Below low normal; Units: U/L; Status: F Test: ALT/SGPT; Value: 14; Range: 12-78; Units: U/L; Status: F Test: ALKALINE PHOSPHATASE; Value: 69; Range: 45-117; Units: U/L; Status: F Test: BILIRUBIN,TOTAL; Value: 0.2; Range: 0.2-1.0; Units: MG/DL; Status: F Test: BILIRUBIN,DIRECT; Value: < 0.1; Range: 0.0-0.2; Units: MG/DL; Status: F Test: TOTAL PROTEIN; Value: 6.4; Range: 6.4-8.2; Units: GM/DL; Status: F Test: ALBUMIN; Value: 3.1; Range: 3.2-5.2; Abnormal: Below low normal; Units: GM/DL; Status: F Test: ALBUMIN/GLOBULIN RATIO; Value: 0.94; Range: 1.00-1.93; Abnormal: Below low normal; Status: F Lab Order: Pt & Aptt; [facility] 02/16/16 14:18 Test: PROTHROMBIN TIME; Value: 15.7; Range: 12.3-14.5; Abnormal: Above high normal; Units: SECONDS; Status: F Test: INR; Value: 1.24; Status: F Test: PARTIAL THROMBOPLASTIN TIME; Value: 31.3; Range: 26.6-37.1; Units: SECONDS; Status: F Test Note: ; THERAPUTIC HUMAN INR VALUES INDICATIONS NORMAL RANGES PROPHYLAXIS/TREATMENT OF: VENOUS THROMBOSIS 2.0-3.0 PULMONARY EMBOLISM 2.0-3.0 PREVENTION OF SYSTEMIC EMBOLISM FROM: TISSUE HEART VALVES 2.0-3.0 ACUTE MYOCARDIAL INFARCTION 2.0-3.0 VALVULAR HEART DISEASE 2.0-3.0 ATRIAL FIBRILLATION 2.0-3.0 MECHANICAL VALVES(HIGH RISK) 2.5-3.5 RECURRENT MYOCARDIAL INFARCTION 2.5-3.5 Lab Order: Type & Screen; [facility] 02/16/16 14:17 Test: BLOOD TYPE; Value: A NEG; Status: F Test: AB SCREEN (INDIRECT JF)GEL; Value: NEGATIVE; Status: F Lab Order: HEMOGLOBIN & HEMATOCRIT; SPEC'M 02/16/16 20:47 Test: HEMOGLOBIN; Value: 10.7; Range: 12.0-16.0; Abnormal: Below low normal; Units: g/dl; Status: F Test: HEMATOCRIT; Value: 32.3; Range: 36.0-47.0; Abnormal: Below low normal; Units: %; Status: F Lab Order: MAGNESIUM LEVEL; SPEC'M 02/16/16 14:17 Test: MAGNESIUM LEVEL; Value: 2.0; Range: 1.8-2.4; Units: MG/DL; Status: F Radiology Order: Chest, 1 View Test: Chest, 1 View REASON FOR EXAMINATION: tachycardia; Portable supine chest x-ray: Single view.; ; History: Tachycardia.; ; Comparison study: March 07, 2013.; ; Findings: There is a heavily calcified tubing related to a ventriculoperitoneal; shunt tubing projecting over the right chest as before. EKG monitoring; electrodes overlie the chest. The lungs are symmetrically aerated and free of; infiltrate. 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 Small bowel obstruction.; ; Comparison study June 10, 2008.; ; Findings: The patient is rotated to the right. EKG monitoring electrodes; overlie the abdomen. There is a ventriculoperitoneal shunt catheter looped or; coiled within the right abdomen. There are several loops of air-filled but; nondilated small bowel in the central abdomen. Air and stool is seen in a; nondistended colon. The bowel gas pattern is felt to be unremarkable.; ; Impression:; ; Right ventriculoperitoneal shunt catheter noted. Normal bowel gas pattern.; ; ; Signed by; Denver Eldridge MD 02/16/2016 04:37 P; Outcome: 15:17 Decision to Hospitalize by Provider. 23:41 Discharge Assessment: patient administered narcotics - no. The following High Risk yuridia Discharge criteria are identified: None. Admitted to PCU accompanied by nurse, via stretcher, on monitor, with chart. Condition: improved. No special radiology studies were completed. Property :Personal belongings accompany Pt. 23:46 Patient left the ED. yuridia Signatures: Dispatcher [employer] EDMS Brent Nevarez MD MD pc Jobson, Karen, RN RN kpj Newman, Awilda Scanlon RN Lisseth Murillo, Pipe Bending Machine Operator Unit ml3 Abhishek Calloway, SCHOOL SERVICES OFFICER SCHOOL SERVICES OFFICER kb5 Aleida BenoitRN RN lf1 Mali Rivera RN RN jc4 Zarina Wong, SCHOOL SERVICES OFFICER SCHOOL SERVICES OFFICER ct3 Kiki Bailon,RN RN dsf Javon Tillman dem1 Hailey Cha gr2 Bar Groves,RN RN jf3 Dylan Mai, SCHOOL SERVICES OFFICER SCHOOL SERVICES OFFICER jmv Rosalie Cleary dm19 Corrections: (The following items were deleted from the chart) 12:22 12:14 Presenting complaint: Mother states: that patient has been vomiting for the past jc4 week. [place] has coffee ground appearance. Actively vomiting in triage jc4 14:38 12:41 GI: Abdomen is distended, Bowel sounds hypoactive in left upper quadrant and left dsf lower quadrant Abd is soft X 4 quads Abd is tender to palpation in right upper quadrant and left upper quadrant Parent/caregiver reports the patient having vomiting for the past week. mother states it did get better but started again last night dsf MTDD
[2016-02-16 23:50] VITALS: BP 131/91
[2016-02-17 04:00] VITALS: BP 122/64
[2016-02-17] MEDS: NS 1,000 ML IV SCH ×3 (04:16→22:42)
[2016-02-17 04:50] LABS: BASO % 0.8 % (0.0-1.0); EOS # 0.1 K/mm3 (0.0-0.50); EOS % 2.7 % (0.0-3.0); LARGE UNSTAINED CELL # 0.1 K/mm3 (0.0-0.4); LARGE UNSTAINED CELL % 1.4 % (0.0-4.0); LYMPH # 1.4 K/mm3 (1.5-4.5); LYMPH % 29.5 % (24.0-44.0); MEAN CORPUSCULAR HEMOGLOBIN 27.6 pg (27.0-33.0); MEAN CORPUSCULAR HGB CONC 31.8 g/dl (32.0-36.5); MEAN CORPUSCULAR VOLUME 86.8 fl (80.0-96.0); MONO # 0.2 K/mm3 (0.0-0.8); MONO % 5.4 % (0.0-5.0); NEUTROPHILS # 2.7 K/mm3 (1.8-7.7); NEUTROPHILS % 60.3 % (36.0-66.0); PLATELET COUNT, AUTOMATED 347 k/mm3 (150-450); RED CELL DISTRIBUTION WIDTH 13.4 % (11.5-14.5); WHITE BLOOD COUNT 4.5 K/mm3 (4.0-10.0)
[2016-02-17 05:00] LABS: ANION GAP 10 MEQ/L (8-16); BLOOD UREA NITROGEN 8 MG/DL (7-18); CALCIUM LEVEL 7.7 MG/DL (8.5-10.1); CARBON DIOXIDE LEVEL 22 MEQ/L (21-32); CHLORIDE LEVEL 114 MEQ/L (98-107); CREATININE FOR GFR 0.44 MG/DL (0.55-1.02); GLOMERULAR FILTRATION RATE > 60.0 (>60); GLUCOSE, FASTING 76 MG/DL (70-105); POTASSIUM SERUM 3.7 MEQ/L (3.5-5.1); SODIUM LEVEL 146 MEQ/L (136-145)
[2016-02-17] MEDS: ACETAMINOPHEN 650 MG SUPP PR PRN (06:38)
[2016-02-17 08:00] VITALS: BP 115/66
[2016-02-17] MEDS: SUCRALFATE SUSP 1GM/10ML UD PO SCH ×4 (09:12→20:55)
[2016-02-17] MEDS: PANTOPRAZOLE 40MG INJ (PROTONIX) (C9113) IV SCH ×2 (09:12→20:55)
[2016-02-17] MEDS ORDERED: FLEET ENEMA PR ONE (11:00)
[2016-02-17 12:00] VITALS: BP_SYST 110; BP_SYST 118; BP_DIAS 59; BP_DIAS 61
[2016-02-17] MEDS: DOCUSATE SOD LIQ 100MG/10ML UDC PO SCH ×2 (12:21→20:55)
[2016-02-17] MEDS: SENNA 8.6 MG TAB (SENOKOT) PO SCH ×2 (12:27→20:55)
--- NOTE | 2016-02-17 14:01 | CR ---
DATE OF CONSULTATION: 02/17/2016 INDICATION FOR CONSULTATION: Coffee-ground emesis with a history of erosive esophagitis as well as gastritis. HISTORY OF PRESENT ILLNESS: The patient is a 40-year-old white female who has a history of severe erosive esophagitis with esophageal ulcers, gastroesophageal reflux disease, and chronic anemia who a week ago started having crampy abdominal pain and on the day of admission had multiple episodes of vomiting, some of which had coffee-ground emesis. The patient was having some problems with constipation and has not had a bowel movement for 1 week. She has had no fevers or chills. No diarrhea issues. She does have a chronic history of constipation issues. She had an upper endoscopy by Dr. Nails in 2008 which showed a large hiatal hernia, superficial esophageal ulcers and esophagitis. She has been on a proton pump inhibitor, but has had chronic anemia. I do not see any colonoscopies in her history or barium enemas for this chronic anemia. She has had the CAT scan of abdomen and pelvis, but it has been a couple years since the last CAT scan with significant obstipation appreciated on that study. Her hematocrit has decreased over the last 24 hours, but is relatively stable at 10.1 this morning. PAST MEDICAL HISTORY: Significant for history of cerebral palsy, history of hydrocephalus and VASCULAR SURGEON shunt, history of GE reflux disease, history of chronic anemia, history of erosive esophagitis with history of esophageal ulcers, history of hiatal hernia, history of septic shock. MEDICATIONS: Include iron tablets daily and omeprazole 20 mg by mouth daily. PHYSICAL EXAMINATION: Reveals a 40-year-old individual with advanced cerebral palsy (CP) who has some significant upper airway congestion and rhonchorous noises. She does not have any complaints. Mother is present who is helping with history and overall status. HEENT: Unremarkable except for the presentation of probable moderate mental retardation associated with the cerebral palsy. Lungs reveal some rhonchi bilaterally, mostly upper airway sounds. Heart is regular. Abdomen is soft, nontender. No guarding and no rebound is appreciated. IMPRESSION AND PLAN: The patient has a normal white count and thus infectious etiology seems less likely. She has had a KUB, but did not undergo a CAT scan given noncompliance issues, which did not show fecal impaction. Thus, issues at this time. 1. Anemia. Question of hematemesis or is this the iron that occurred with this vomiting. With her history of esophagitis, I do feel that it is most reasonable to start her on proton pump inhibitors (PPIs) twice a day, Carafate as well, and further evaluation of the upper GI tract. This, given her respiratory issues and overall contractions, my concern is that she is a relatively poor operative risk and obtaining an upper GI is a reasonable first start for her. If this shows esophagitis or inflammatory changes consistent with gastritis, then aggressive treatment with the proton pumps and Carafate as an outpatient should be adequate. 2. Chronic constipation. She has some chronic constipation. Keeping her on some stool softeners is a reasonable option for her as well. However, at some point in the future, if she is deemed a better operative candidate or reasonable operative candidate, upper and lower endoscopy is reasonable for her. At this point, once again, she is stable. She is not hypotensive. She is not actively bleeding. From a GI standpoint, I would recommend aggressive treatment for possible upper GI source of this hematemesis. It is reasonable that she be transferred to progressive care unit (PCU) or the floor if she hemodynamically stays stable. Also, start her on a clear liquid diet advancing to a full liquid diet is also reasonable at this time.
--- NOTE | 2016-02-17 14:57 | IPNPDOC ---
Text Note Date of Service The patient was seen on 02/17/16 at 14:36. NOTE Subjective: Patient is a 40 year old female with PMHx of cerebral palsy, hydrocephalus - s/ p MOTOR RUNNER shunt, severe erosive esophagitis and esophageal ulcer, GERD and chronic anemia who presented to the ED with vomiting of coffee ground material and abdominal pain. Patient was also noted to have constipation. She was admitted for possible upper GI bleed and placed on telemetry. Patient was seen and examined at the bedside. Clinically she does not appear to be in any distress, does have some abdominal discomfort. Objective: Vitals (See below) General: Lying in bed, no acute distress, comfortable, awake + alert HEENT: NC, AT CVS: RRR, +S1S2 Lungs: Fair air entry b/l, -w/r/r Abdomen: Soft, ND, mild diffuse tenderness, +BSx4 Extremities; +PPx4, -edema, - calf tenderness Assessment and plan: 1. Acute blood loss anemia - possibly 2/2 acute upper GI bleed - possibly 2/2 esophagitis / esophageal ulcer / gastric ulcer - Presented with coffee ground emesis and abdominal pain - Has had EGD done in 2008 with esophagitis and esophageal ulcers - Remains hemodynamically stable - Hg has trended down since admission - possibly 2/2 dilutional component as well - Will continue to monitor for signs of bleeding and follow H&H q6 hours - will c/w Protonix IV BID, and Carafate - NPO diet has been advanced to clears - Has been evaluated by surgery (Dr. Gallego) - appreciate their input --- Possible EGD to be done tomorrow (02/17) AM 2. Abdominal pain - possibly 2/2 constipation or possibly gastric ulcer - will give trial of stool softeners and fleet enema - will evaluate for BM 3. Spastic quadriplegic, Cerebral palsy and hydrocephalus - s/p MOTOR RUNNER shunt - c/w aspiration precautions 4. Chronic anemia 5. GI prophylaxis - c/w protonix 6. DVT prophylaxis - c/w SCD VS,Fishbone, I+O VS, Fishbone, I+O Laboratory Tests 02/16/16 20:47 02/17/16 04:16 Calcium Level 7.7 L, Red Blood Count 3.67 L, Mean Corpuscular Volume 86.8, Mean Corpuscular Hemoglobin 27.6, Mean Corpuscular Hemoglobin Concent 31.8 L, Red Cell Distribution Width 13.4, Neutrophils (%) (Auto) 60.3, Lymphocytes (%) (Auto ) 29.5, Monocytes (%) (Auto) 5.4 H, Eosinophils (%) (Auto) 2.7, Basophils (%) ( Auto) 0.8, Neutrophils # (Auto) 2.7, Lymphocytes # (Auto) 1.4 L, Monocytes # ( Auto) 0.2, Eosinophils # (Auto) 0.1, Basophils # (Auto) 0.0 02/17/16 11:55 Vital Signs Date Time Temp Pulse Resp B/P Pulse Ox O2 Delivery O2 Flow Rate FiO2 02/17/16 12:00 Room Air 02/17/16 12:00 98.1 89 18 110/61 96 I&O- Last 24 Hours up to 6 AM 02/17/16 06:00 Intake Total 600 ml Balance 600 ml FABRICIO NESS MD Feb 17, 2016 14:57
[2016-02-17 16:00] VITALS: BP 115/71
[2016-02-17 16:01] LABS: RETIC HEMOGLOBIN CONTENT CHr 26.9 PG (24-36); RETICULOCYTE % ADVIA2120 3.2 % (0.5-1.5)
[2016-02-17 16:05] LABS: FERRITIN 8 NG/ML (8-252); PERCENT SATURATION 21.9 % (13.2-37.4); TOTAL IRON BINDING CAPACITY 301 UG/DL (250-450)
[2016-02-17 20:44] VITALS: BP 113/89
[2016-02-18] VITALS: BP 134/86
[2016-02-18 04:00] VITALS: BP 115/63
[2016-02-18 04:52] LABS: BASO % 0.5 % (0.0-1.0); EOS # 0.2 K/mm3 (0.0-0.50); EOS % 3.3 % (0.0-3.0); LARGE UNSTAINED CELL # 0.1 K/mm3 (0.0-0.4); LARGE UNSTAINED CELL % 1.6 % (0.0-4.0); LYMPH # 1.1 K/mm3 (1.5-4.5); LYMPH % 23.2 % (24.0-44.0); MEAN CORPUSCULAR HGB CONC 31.6 g/dl (32.0-36.5); MEAN CORPUSCULAR VOLUME 85.5 fl (80.0-96.0); MONO # 0.2 K/mm3 (0.0-0.8); MONO % 3.9 % (0.0-5.0); NEUTROPHILS # 3.1 K/mm3 (1.8-7.7); NEUTROPHILS % 67.4 % (36.0-66.0); PLATELET COUNT, AUTOMATED 307 k/mm3 (150-450); RED CELL DISTRIBUTION WIDTH 12.4 % (11.5-14.5); WHITE BLOOD COUNT 4.6 K/mm3 (4.0-10.0)
[2016-02-18 05:06] LABS: ANION GAP 13 MEQ/L (8-16); BLOOD UREA NITROGEN 3 MG/DL (7-18); CARBON DIOXIDE LEVEL 20 MEQ/L (21-32); CHLORIDE LEVEL 113 MEQ/L (98-107); CREATININE FOR GFR 0.36 MG/DL (0.55-1.02); GLOMERULAR FILTRATION RATE > 60.0 (>60); GLUCOSE, FASTING 73 MG/DL (70-105); MAGNESIUM LEVEL 1.8 MG/DL (1.8-2.4); POTASSIUM SERUM 3.5 MEQ/L (3.5-5.1); SODIUM LEVEL 146 MEQ/L (136-145)
[2016-02-18] MEDS: ACETAMINOPHEN 650 MG SUPP PR PRN (05:35)
[2016-02-18] MEDS: SUCRALFATE SUSP 1GM/10ML UD PO SCH ×2 (07:58→12:00)
[2016-02-18] MEDS: NS 1,000 ML IV SCH (07:58)
[2016-02-18 08:00] VITALS: BP 117/74
[2016-02-18] MEDS: DOCUSATE SOD LIQ 100MG/10ML UDC PO SCH (09:58)
[2016-02-18] MEDS: SENNA 8.6 MG TAB (SENOKOT) PO SCH (09:58)
[2016-02-18] MEDS: PANTOPRAZOLE 40MG INJ (PROTONIX) (C9113) IV SCH (09:58)
[2016-02-18 10:12] LABS: VITAMIN B12 LEVEL 858 PG/ML
[2016-02-18 10:13] LABS: FOLATE 3.4 NG/ML
[2016-02-18] MEDS ORDERED: E-Z-PAQUE 96% w/w SUSP 176GM BTL As Ordered ONE (10:41)
[2016-02-18 14:30] VITALS: BP 118/71
[2016-02-18] MEDS ORDERED: DOCU10ELUD PO (15:21)
[2016-02-18] MEDS ORDERED: PROT1TAB2 PO (15:21)
[2016-02-18] MEDS ORDERED: SENN1TAB4 PO (15:21)
[2016-02-18] MEDS ORDERED: SUCR1SS PO (15:21)
[2016-02-18] MEDS ORDERED: DOCU100T8 PO (15:53)
--- NOTE | 2016-02-18 17:40 | REP ---
UPPER GI AIR CONTRAST AND SMALL BOWEL FOLLOW-THROUGH: The procedure was performed under the direct supervision of Dr. Eldridge. The images were reviewed with Dr. Eldridge. The consulting intern film shows no organomegaly or pathological masses. The intestinal gas pattern is nonspecific. There is a ventriculoperitoneal shunt catheter looped or coiled within the right abdomen. Liquid barium was given in the supine oblique position. The oral and pharyngeal stages of deglutition are unremarkable. 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 During esophageal transport there are tertiary waves demonstrated. There is no evidence of esophagitis, stricture, or mucosal ring. There is a hiatal hernia present. There is significant gastroesophageal reflux demonstrated to the level of the thoracic inlet. The stomach is grossly normal. The rugal fold are smooth and regular. There is no evidence of gastritis, neoplasm or ulcer disease. The duodenum is grossly normal. The mucosal folds are smooth and regular. There is no evidence of duodenitis, pancreatitis, peptic ulcer disease, or neoplasm. The visualized portion of the proximal small bowel appears normal in course and caliber. The barium column was followed through the small bowel to the level of the terminal ileum. Small bowel transit time was approximately 90 minutes. During fluoroscopy gentle palpation shows all loops are freely movable and pliable. There are no fixed or angulated loops. The small bowel mucosal pattern appears normal in course and caliber. There is no transition to suggest a partial small bowel obstruction. The terminal ileum and cecum lie high within the right abdomen. Spot filming of the terminal ileum shows it to be unremarkable. IMPRESSION: 1. There is cricopharyngeal hypertrophy. 2. There is a hiatal hernia present. There is gastroesophageal reflux demonstrated to the level of the thoracic inlet. 3. Esophageal dysmotility. 3 minutes and 5 seconds of fluoroscopy time was utilized for this procedure. Reviewed by KEV Hughes 02/19/2016 11:11 AEdited and Signed by Denver Eldridge MD 02/19/2016 12:19 P
--- NOTE | 2016-02-18 17:58 | DSES ---
DATE OF ADMISSION: 02/16/2016 DATE OF DISCHARGE: 02/18/2016 PRIMARY CARE PHYSICIAN: Dr. Elizabeth Ramsey. REFERRING PHYSICIAN: None. CONSULTING PHYSICIAN: Dr. Gallego. CONDITION ON DISCHARGE: Stable. FINAL DIAGNOSIS: Nausea and vomiting possibly secondary to constipation and esophagitis. PROCEDURES: None. HISTORY OF PRESENT ILLNESS: The patient is a 40-year-old female with a past medical history of cerebral palsy, hydrocephalus status post ventriculoperitoneal (DIRECTOR OF CODING) shunt, severe erosive esophagitis and esophageal ulcer, gastroesophageal reflux disease (GERD), and chronic anemia, who presented to the emergency department with vomiting of coffee-ground material and abdominal pain. The patient was also noted to have constipation. She was admitted for possible upper gastrointestinal (GI) bleed and placed on telemetry. HOSPITAL COURSE: 1. Acute blood loss anemia, possibly secondary to dilution, possibly secondary to acute upper GI bleed, possibly secondary to esophagitis/esophageal ulcers/ gastric ulcer. Presented with coffee-ground emesis and abdominal pain. The patient had an esophagogastroduodenoscopy (EGD) done in 2008, which revealed esophagitis and esophageal ulcer. She remains hemodynamically stable. Hemoglobin has trended down throughout the admission; however, this could be possibly due to dilution. Hemoglobin remains over the last 48 hours. The patient has not required any blood transfusion. The patient was started on Protonix intravenous (IV) twice a day and Carafate. She has been on nothing by mouth diet and has been advanced and has been tolerating. The patient was evaluated by surgery, Dr. Gallego. Appreciate his input. The patient had an upper GI series which revealed a hiatal hernia with significant reflux seen to the level of the thoracic inlet. Otherwise was unremarkable. Case was discussed with Dr. Gallego. The patient is a moderate risk for sedation and we will avoid EGD at this time. We will continue with conservative management with Protonix twice a day and Carafate. We will get surgical followup in 1-2 weeks. 2. Abdominal pain possibly secondary to constipation. Has been given multiple stool softeners as an inpatient and Fleet enema. She has had a large volume bowel movement yesterday. Has had some relief of abdominal pain. 3. Spastic quadriplegia, Cerebral palsy and hydrocephalus, status post DIRECTOR OF CODING shunt. Continue with aspiration precautions. 4. Chronic anemia. 5. GI prophylaxis. Continue with Protonix. 6. Deep venous thrombosis (DVT) prophylaxis. Continue with sequential compression devices. DISCHARGE MEDICATIONS: The patient will be discharged home with the following: - docusate 100 mg by mouth twice a day - Protonix 40 mg by mouth twice a day - Senna two tablets by mouth twice a day as needed for constipation - Carafate 1 gram by mouth before meals and at bedtime - ferrous sulfate 325 mg by mouth twice a day DISCHARGE INSTRUCTIONS: The patient is advised to followup with the primary care provider and surgery, Dr. Gallego, within the next 1-2 weeks. She is advised to call to confirm/schedule appointment and return to the emergency room if she experiences any problems. She is advised to remain compliant with treatment plan and medications. TIME SPENT ON DISCHARGE: 35 minutes. [place]
--- NOTE | 2016-02-19 12:05 | EDDOCDS ---
Nurse's Notes [facility] Name: Lluvia Galarza Age: 40 yrs Sex: Female : 1975 Arrival Date: 02/16/2016 Time: 12:08 Bed 5 Private MD: Elizabeth Ramsey PA-C Diagnosis: Gastrointestinal hemorrhage, unspecified-upper;Tachycardia, unspecified Presentation: 02/15 12:14 Presenting complaint: Mother states: that patient has been vomiting for the past week. jc4 Emesis has coffee ground appearance. Actively vomiting in triage. 12:21 Adult Sepsis Screening: The patient does not have new or worsening altered mentation. jc4 Patient's respiratory rate is less than 22. Systolic blood pressure is greater than 100. Patient has a qSOFA score of 0- Negative Sepsis Screen. Suicide/Homicide risk assessment- the patient denies having any suicidal and/or homicidal ideations and does not present with any other emotional, behavioral or mental health complaints. 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 Transition of care: patient was not received from another setting of care. 12:21 Acuity: KAUSHIK Level 3 jc4 12:21 Method Of Arrival: Wheelchair jc4 Triage Assessment: 12:20 General: Appears distressed, Behavior is anxious. Pain: Location: abdomen. HIV jc4 screening NA for this visit. 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 omeprazole 20 mg Oral cpDR 1 cap once daily (Last dose: 02/16/2016 09:00) 2. 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 - Social history: Smoking status: Patient states was never smoker of tobacco. No barriers to communication noted, Speaks appropriately for age. - : The pt / caregiver states he / she is not on anticoagulants. Home medication list is obtained from the caregiver. - Hospitalizations: : No recent hospitalization is reported. - Exposure Risk Screening:: None identified. - Immunization history:: All immunizations up-to-date. - Family history: Not pertinent. - Social history:: the patient is a non-smoker, the patient does not drink alcohol. Screenin:17 Screening information is obtained from family members. Fall risk: At risk due to lf1 immobility, The following interventions are performed due to a positive Fall Risk Screen: Fall Risk is added to Special Handling on the patient Summary Screen. A Fall Risk Bracelet was applied to the patient. Side Rails are placed in the up position. A Call Brooks is given with instruction to call for help when getting out of bed. Fall Alert bracelet is placed on the patient. Assistance ADL's: Requires assistance with meal preparation, this assistance is provided by family members, bathing, assistance is provided by family members, dressing, assistance is provided by family members, toileting, assistance is provided by family members, ambulation, assistance is provided by family members, housework, assistance is provided by family members, medication administration, assistance is provided by family members. Abuse/DV Screen:. home support is adequate. 23:36 Abuse/DV Screen:. lf1 23:36 Abuse/DV Screen: The patient / caregiver reports he/she is: not in a situation that lf1 causes fear, pain or injury. Nutritional screening: On soft. Advance Directives: Currently, there is a health care proxy, Jessie (mother). Assessment: 12:41 General: Appears in no apparent distress, Behavior is appropriate for age. Pain: dsf Location: abdomen Quality of pain is described as "hurts really bad". Neurological: Level of Consciousness is awake, alert. Cardiovascular: Capillary refill < 3 seconds Heart tones S1 S2 present Rhythm is sinus tachycardia No ectopy. Respiratory: Airway is patent Respiratory effort is even, unlabored, Respiratory pattern is regular, symmetrical, Breath sounds are clear bilaterally. GI: Abdomen is distended, other coffee brown emesis in basin Bowel sounds hypoactive in left upper quadrant and left lower quadrant Abd is soft X 4 quads Abd is tender to palpation in right upper quadrant and left upper quadrant Parent/caregiver reports the patient having vomiting for the past week. mother states it did get better but started again last night. Derm: Skin is pink, warm & dry. 13:41 General: Appears in no apparent distress, Behavior is appropriate for age. dsf Neurological: Level of Consciousness is awake, alert. Cardiovascular: Capillary refill < 3 seconds Rhythm is sinus tachycardia No ectopy. Respiratory: Airway is patent Respiratory effort is even, unlabored, Respiratory pattern is regular, symmetrical. Derm: Skin is pink, warm & dry. 14:42 General: Appears in no apparent distress, Behavior is appropriate for age. General: pt dsf does drawn knees up to abdomen when it hurts . Pain: Location: abdomen. Neurological: Level of Consciousness is awake, alert. Cardiovascular: Capillary refill < 3 seconds Heart tones S1 S2 present Rhythm is sinus tachycardia No ectopy. Respiratory: Airway is patent Respiratory effort is even, unlabored, Respiratory pattern is regular, symmetrical, Breath sounds are clear bilaterally. GI: Abdomen is distended, Bowel sounds present X 4 quads. Abd is soft X 4 quads Abd is tender to palpation in right upper quadrant, left upper quadrant and right lower quadrant. Derm: Skin is pink, warm & dry. 15:48 General: Dr. Qureshi placed a 14 turkmen NG tube to left nare. Coffee ground emesis dsf suctioning out of stomach. 15:56 General: Dr. Qureshi removed NG tube pt was producing tons of oral secretions . dsf 16:49 Adult Sepsis Screening: The patient does not have new or worsening altered mentation. dsf Patient's respiratory rate is less than 22. Systolic blood pressure is greater than 100. Patient has a qSOFA score of 0- Negative Sepsis Screen. General: Appears in no apparent distress, Behavior is appropriate for age. Pain: Location: abdomen. Neurological: Level of Consciousness is awake, alert. Cardiovascular: Capillary refill < 3 seconds. Respiratory: Airway is patent Respiratory effort is even, unlabored, Respiratory pattern is regular, symmetrical. Derm: Skin is pink, warm & dry. 17:49 General: Appears in no apparent distress, Behavior is appropriate for age. dsf Neurological: Level of Consciousness is awake, alert. Cardiovascular: Capillary refill < 3 seconds Rhythm is sinus tachycardia No ectopy. Respiratory: Airway is patent Respiratory effort is even, unlabored, Respiratory pattern is regular, symmetrical. Derm: Skin is pink, warm & dry. 18:35 Adult Sepsis Screening: The patient does not have new or worsening altered mentation. dsf Patient's respiratory rate is less than 22. Systolic blood pressure is greater than 100. Patient has a qSOFA score of 0- Negative Sepsis Screen. General: Appears in no apparent distress, Behavior is appropriate for age. Neurological: Level of Consciousness is awake, alert. Cardiovascular: Capillary refill < 3 seconds. Respiratory: Airway is patent Respiratory effort is even, unlabored, Respiratory pattern is regular, symmetrical. Derm: Skin is pink, warm & dry. 19:16 General: Appears in no apparent distress, Behavior is cooperative. Neurological: Level lf1 of Consciousness is awake, alert. Respiratory: Respiratory effort is even, unlabored. GI: Abdomen is distended, Bowel sounds Abd is tender to palpation. Derm: Skin is normal. 20:30 General: Appears in no apparent distress, family at bedside. Neurological: Level of lf1 Consciousness is awake. Respiratory: Respiratory effort is even, unlabored. GI: Abdomen is distended. : Attends in place. Derm: Skin is normal. 22:21 Adult Sepsis Screening: The patient does not have new or worsening altered mentation. lf1 Patient's respiratory rate is less than 22. Systolic blood pressure is greater than 100. Patient has a qSOFA score of 0- Negative Sepsis Screen. General: Appears in no apparent distress. General: family at bedside. Pain: Denies pain. Neurological: Level of Consciousness is awake, alert. Cardiovascular: Rhythm is regular. Respiratory: Respiratory effort is even, unlabored. GI: Abdomen is distended, other no episodes of vomiting since removal of NG tube. 23:36 General: Appears in no apparent distress, Behavior is cooperative. Neurological: Level lf1 of Consciousness is awake, alert. EENT: No deficits noted. Cardiovascular: Rhythm is regular. Respiratory: Respiratory effort is even, unlabored. GI: Abdomen is distended, Bowel sounds. Derm: Skin is normal. Musculoskeletal: contracted. Vital Signs: 12:12 BP 137 / 75; Pulse 128; Resp 20 S; Temp 97.8(T); Pulse Ox 98% on R/A; Weight 47.63 kg gr2 (R); Height 5 ft. 5 in. (165.10 cm) (R); Pain 4/10; 12:35 BP 147 / 85 (auto/); dsf 12:36 Pulse 110 MON; Pulse Ox 96% ; dsf 12:50 BP 165 / 109 (auto/); dsf 12:50 Pulse 114 MON; Pulse Ox 90% ; dsf 13:19 Pulse 112 MON; dsf 13:20 BP 131 / 101 (auto/); dsf 13:35 BP 159 / 88 (auto/); dsf 13:35 Pulse 116 MON; Pulse Ox 95% ; dsf 13:50 BP 156 / 94 (auto/); dsf 13:50 Pulse 108 MON; Pulse Ox 93% ; dsf 14:05 BP 153 / 97 (auto/); dsf 14:05 Pulse 108 MON; Pulse Ox 94% ; dsf 14:20 BP 150 / 92 (auto/); dsf 14:20 Pulse 108 MON; Pulse Ox 92% ; dsf 14:35 BP 151 / 94 (auto/); dsf 14:35 Pulse 108 MON; Pulse Ox 95% ; dsf 14:50 BP 158 / 96 (auto/); dsf 14:50 Pulse 104 MON; Pulse Ox 96% ; dsf 15:05 BP 159 / 93 (auto/); dsf 15:05 Pulse 100 MON; Pulse Ox 96% ; dsf 15:20 BP 150 / 101 (auto/); dsf 15:20 Pulse 100 MON; Pulse Ox 94% ; dsf 15:35 BP 156 / 109 (auto/); dsf 15:35 Pulse 128 MON; dsf 15:49 Pulse 150 MON; dsf 15:50 BP 161 / 96 (auto/); dsf 16:05 BP 135 / 80 (auto/); dsf 16:05 Pulse 122 MON; Pulse Ox 94% ; dsf 16:20 BP 132 / 77 (auto/); dsf 16:20 Pulse 110 MON; Pulse Ox 93% ; dsf 16:35 BP 136 / 76 (auto/); dsf 16:35 Pulse 106 MON; Pulse Ox 95% ; dsf 16:50 BP 133 / 79 (auto/); dsf 16:50 Pulse 102 MON; Pulse Ox 94% ; dsf 17:05 BP 140 / 78 (auto/); dsf 17:05 Pulse 100 MON; Pulse Ox 94% ; dsf 17:20 BP 140 / 81 (auto/); dsf 17:20 Pulse 102 MON; Pulse Ox 94% ; dsf 17:35 BP 129 / 78 (auto/); lf1 17:35 Pulse 104 MON; Pulse Ox 95% ; lf1 17:50 BP 136 / 78 (auto/); lf1 17:50 Pulse 100 MON; Pulse Ox 94% ; lf1 18:04 Pulse 100 MON; Pulse Ox 93% ; lf1 18:05 BP 136 / 77 (auto/); lf1 18:19 Pulse 100 MON; Pulse Ox 92% ; lf1 18:20 BP 128 / 69 (auto/); lf1 18:34 Pulse 100 MON; Pulse Ox 92% ; lf1 18:35 BP 120 / 70 (auto/); lf1 18:49 Pulse 104 MON; Pulse Ox 92% ; lf1 18:50 BP 121 / 68 (auto/); lf1 19:02 Pulse 98 MON; Pulse Ox 90% ; lf1 19:05 BP 129 / 67 (auto/); lf1 19:16 Pulse 100 MON; Resp 18; Pulse Ox 90% ; lf1 19:20 BP 128 / 68 (auto/); lf1 19:20 Pulse 100 MON; Pulse Ox 89% ; lf1 19:35 BP 125 / 61 (auto/); lf1 19:35 Pulse 98 MON; Pulse Ox 89% ; lf1 19:50 BP 132 / 68 (auto/); lf1 19:50 Pulse 98 MON; Pulse Ox 88% ; lf1 20:05 BP 138 / 75 (auto/); lf1 20:05 Pulse 104 MON; lf1 20:20 BP 139 / 76 (auto/); lf1 20:20 Pulse 104 MON; lf1 20:35 BP 143 / 80 (auto/); lf1 20:35 Pulse 100 MON; lf1 20:50 BP 135 / 73 (auto/); lf1 20:50 Pulse 100 MON; Pulse Ox 96% ; lf1 21:05 BP 131 / 70 (auto/); lf1 21:05 Pulse 96 MON; Pulse Ox 93% ; lf1 21:20 BP 126 / 67 (auto/); lf1 21:20 Pulse 104 MON; Pulse Ox 93% ; lf1 21:35 BP 129 / 67 (auto/); lf1 21:35 Pulse 102 MON; Pulse Ox 93% ; lf1 21:50 BP 119 / 66 (auto/); lf1 21:50 Pulse 102 MON; Pulse Ox 90% ; lf1 22:05 BP 141 / 72 (auto/); lf1 22:05 Pulse 102 MON; Pulse Ox 91% ; lf1 22:17 Pulse 102 MON; Resp 16; Pulse Ox 90% ; lf1 23:25 BP 119 / 68; Pulse 98; Resp 20; Temp 98.6(TE); Pulse Ox 95% on R/A; jmv 12:12 Body Mass Index 17.47 (47.63 kg, 165.10 cm) gr2 Vitals: 12:12 Log In Time: February 16, 2016 at 12:12. RN notified that patient meets Red Flag gr2 criteria. ED Course: 12:12 Patient visited by Hailey Cha. gr2 12:12 Elizbaeth Ramsey is Private Physician. gr2 12:12 Patient moved to Waiting gr2 12:14 Patient visited by Hailey Cha. gr2 12:14 Patient moved to Pre RCE gr2 12:22 Triage Initiated jc4 12:26 Patient moved to 5 dem1 12:42 Inserted saline lock: 20 gauge in left hand The patient tolerated the procedure well. dsf 12:43 Patient visited by Kiik Bailon RN. dsf 12:43 Patient visited by Kiki Bailon RN. dsf 12:43 The patient / caregiver is instructed regarding the plan of care and ED course. Patient dsf has correct armband on for positive identification. Placed in gown. Bed in low position. Call light in reach. Side rails up X2. 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 Pulse ox on. NIBP on. 13:07 Brent Nevarez MD is Attending Physician. pc 13:07 Patient visited by Brent Nevarez MD. pc 13:31 [facility] Payment Agreement was scanned into [employer] and attached to record. dm19 13:40 Patient visited by Bar Groves RN. jf3 14:20 Type & Screen Sent. dsf 14:20 Pt & Aptt Sent. dsf 14:20 Liver Profile Sent. dsf 14:20 MED Profile Sent. dsf 14:20 CBC with Diff Sent. dsf 14:40 Patient visited by Zarina Wong PCA. ct3 14:44 Patient visited by Kiki Bailon RN. dsf 15:08 EKG done. (by ED staff). Reviewed by Brent Nevarez MD. ct3 15:10 Patient visited by Zarina Wong PCA. ct3 15:17 Elizabeth Ballard is Hospitalizing Provider. pc 15:56 Patient visited by Kiki Bailon RN. dsf 16:50 Patient visited by Kiki Bailon RN. dsf 16:59 Patient moved to Admit Hold kpj 17:10 Abdomen,Flat Plate KUB Returned. EDMS 17:29 Patient visited by Kiki Bailon RN. dsf 17:51 Chest, 1 View Returned. EDMS 17:52 Patient visited by Kiki Bailon RN. dsf 18:36 Patient visited by Kiki Bailon RN. dsf 19:05 Patient visited by Abhishek Calloway PCA. kb5 19:20 Patient visited by Aleida Benoit RN. lf1 20:38 Patient moved to 5 ml3 22:02 Patient visited by Abhishek Calloway PCA. kb5 22:18 Patient visited by Aleida Benoit RN. lf1 22:21 Turned pillows under back and between legs. lf1 22:23 Patient visited by Aleida Benoit RN. lf1 23:26 Patient visited by Dylan Mai PCA. jmv 23:36 No procedures done that require assistance. lf1 23:42 EKG-ADULT Returned. EDMS 02/16 09:12 ECG/EKG was scanned into [employer] and attached to record. gb Administered Medications: 02/15 13:25 Drug: NS 0.9% 1000 ml [sodium chloride 0.9 % injection solution] Route: IV; Rate: jf3 bolus; Site: left hand; 17:53 Follow up: IV Status: Completed infusion; IV Intake: 1000ml dsf 13:27 Drug: Ondansetron 4 mg [ondansetron HCl 2 mg/mL intravenous solution (2 mL)] Route: jf3 IVP; Site: left hand; 13:30 Drug: pantoprazole 80 mg [pantoprazole 40 mg intravenous solution] Route: IV; Rate: jf3 bolus; Site: left hand; 18:36 Follow up: IV Status: Completed infusion dsf Intake: 17:53 IV: 1000.00ml; Total: 1000.00ml. dsf Order Results: Lab Order: CBC with Diff; SPEC'M 02/16/16 14:18 Test: WHITE BLOOD COUNT; Value: 5.7; Range: 4.0-10.0; Units: K/mm3; Status: F Test: RED BLOOD COUNT; Value: 4.21; Range: 4.00-5.40; Units: M/mm3; Status: F Test: HEMOGLOBIN; Value: 12.0; Range: 12.0-16.0; Units: g/dl; Status: F Test: HEMATOCRIT; Value: 35.7; Range: 36.0-47.0; Abnormal: Below low normal; Units: %; Status: F Test: MEAN CORPUSCULAR VOLUME; Value: 84.7; Range: 80.0-96.0; Units: fl; Status: F Test: MEAN CORPUSCULAR HEMOGLOBIN; Value: 28.6; Range: 27.0-33.0; Units: pg; Status: F Test: MEAN CORPUSCULAR HGB CONC; Value: 33.7; Range: 32.0-36.5; Units: g/dl; Status: F Test: RED CELL DISTRIBUTION WIDTH; Value: 12.6; Range: 11.5-14.5; Units: %; Status: F Test: PLATELET COUNT, AUTOMATED; Value: 320; Range: 150-450; Units: k/mm3; Status: F Test: NEUTROPHILS %; Value: 70.7; Range: 36.0-66.0; Abnormal: Above high normal; Units: %; Status: F Test: LYMPH %; Value: 20.7; Range: 24.0-44.0; Abnormal: Below low normal; Units: %; Status: F Test: MONO %; Value: 4.0; Range: 0.0-5.0; Units: %; Status: F Test: EOS %; Value: 1.6; Range: 0.0-3.0; Units: %; Status: F Test: BASO %; Value: 0.2; Range: 0.0-1.0; Units: %; Status: F Test: LARGE UNSTAINED CELL %; Value: 2.7; Range: 0.0-4.0; Units: %; Status: F Test: NEUTROPHILS #; Value: 4.0; Range: 1.8-7.7; Units: K/mm3; Status: F Test: LYMPH #; Value: 1.2; Range: 1.5-4.5; Abnormal: Below low normal; Units: K/mm3; Status: F Test: MONO #; Value: 0.2; Range: 0.0-0.8; Units: K/mm3; Status: F Test: EOS #; Value: 0.1; Range: 0.0-0.50; Units: K/mm3; Status: F Test: BASO #; Value: 0.0; Range: 0.0-0.2; Units: K/mm3; Status: F Test: LARGE UNSTAINED CELL #; Value: 0.2; Range: 0.0-0.4; Units: K/mm3; Status: F Lab Order: MED Profile; SPEC'M 02/16/16 14:17 Test: GLUCOSE, FASTING; Value: 92; Range: 70-105; Units: MG/DL; Status: F Test: BLOOD UREA NITROGEN; Value: 12; Range: 7-18; Units: MG/DL; Status: F Test: CREATININE FOR GFR; Value: 0.55; Range: 0.55-1.02; Units: MG/DL; Status: F Test: GLOMERULAR FILTRATION RATE; Value: > 60.0; Range: >60; Status: F Test: SODIUM LEVEL; Value: 144; Range: 136-145; Units: MEQ/L; Status: F Test: POTASSIUM SERUM; Value: 3.9; Range: 3.5-5.1; Units: MEQ/L; Status: F Test: CHLORIDE LEVEL; Value: 110; Range: 98-107; Abnormal: Above high normal; Units: MEQ/L; Status: F Test: CARBON DIOXIDE LEVEL; Value: 26; Range: 21-32; Units: MEQ/L; Status: F Test: ANION GAP; Value: 8; Range: 8-16; Units: MEQ/L; Status: F Test: CALCIUM LEVEL; Value: 7.9; Range: 8.5-10.1; Abnormal: Below low normal; Units: MG/DL; Status: F Test Note: ; Units are mL/min/1.73 m2 Chronic Kidney Disease Staging per NKF: Stage I & II GFR >=60 Normal to Mildly Decreased Stage III GFR 30-59 Moderately Decreased Stage IV GFR 15-29 Severely Decreased Stage V GFR <15 Very Little GFR Left ESRD GFR <15 on DIGITAL PRODUCT MANAGER Test: MAGNESIUM LEVEL; Range: 1.8-2.4; Units: MG/DL; Status: I Lab Order: Liver Profile; [facility] 02/16/16 14:17 Test: AST/SGOT; Value: 6; Range: 15-37; Abnormal: Below low normal; Units: U/L; Status: F Test: ALT/SGPT; Value: 14; Range: 12-78; Units: U/L; Status: F Test: ALKALINE PHOSPHATASE; Value: 69; Range: 45-117; Units: U/L; Status: F Test: BILIRUBIN,TOTAL; Value: 0.2; Range: 0.2-1.0; Units: MG/DL; Status: F Test: BILIRUBIN,DIRECT; Value: < 0.1; Range: 0.0-0.2; Units: MG/DL; Status: F Test: TOTAL PROTEIN; Value: 6.4; Range: 6.4-8.2; Units: GM/DL; Status: F Test: ALBUMIN; Value: 3.1; Range: 3.2-5.2; Abnormal: Below low normal; Units: GM/DL; Status: F Test: ALBUMIN/GLOBULIN RATIO; Value: 0.94; Range: 1.00-1.93; Abnormal: Below low normal; Status: F Lab Order: Pt & Aptt; [facility] 02/16/16 14:18 Test: PROTHROMBIN TIME; Value: 15.7; Range: 12.3-14.5; Abnormal: Above high normal; Units: SECONDS; Status: F Test: INR; Value: 1.24; Status: F Test: PARTIAL THROMBOPLASTIN TIME; Value: 31.3; Range: 26.6-37.1; Units: SECONDS; Status: F Test Note: ; THERAPUTIC HUMAN INR VALUES INDICATIONS NORMAL RANGES PROPHYLAXIS/TREATMENT OF: VENOUS THROMBOSIS 2.0-3.0 PULMONARY EMBOLISM 2.0-3.0 PREVENTION OF SYSTEMIC EMBOLISM FROM: TISSUE HEART VALVES 2.0-3.0 ACUTE MYOCARDIAL INFARCTION 2.0-3.0 VALVULAR HEART DISEASE 2.0-3.0 ATRIAL FIBRILLATION 2.0-3.0 MECHANICAL VALVES(HIGH RISK) 2.5-3.5 RECURRENT MYOCARDIAL INFARCTION 2.5-3.5 Lab Order: Type & Screen; [facility] 02/16/16 14:17 Test: BLOOD TYPE; Value: A NEG; Status: F Test: AB SCREEN (INDIRECT JF)GEL; Value: NEGATIVE; Status: F Lab Order: HEMOGLOBIN & HEMATOCRIT; SPEC'M 02/16/16 20:47 Test: HEMOGLOBIN; Value: 10.7; Range: 12.0-16.0; Abnormal: Below low normal; Units: g/dl; Status: F Test: HEMATOCRIT; Value: 32.3; Range: 36.0-47.0; Abnormal: Below low normal; Units: %; Status: F Lab Order: MAGNESIUM LEVEL; SPEC'M 02/16/16 14:17 Test: MAGNESIUM LEVEL; Value: 2.0; Range: 1.8-2.4; Units: MG/DL; Status: F Radiology Order: Chest, 1 View Test: Chest, 1 View REASON FOR EXAMINATION: tachycardia; Portable supine chest x-ray: Single view.; ; History: Tachycardia.; ; Comparison study: March 07, 2013.; ; Findings: There is a heavily calcified tubing related to a ventriculoperitoneal; shunt tubing projecting over the right chest as before. EKG monitoring; electrodes overlie the chest. The lungs are symmetrically aerated and free of; infiltrate. 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 Small bowel obstruction.; ; Comparison study June 10, 2008.; ; Findings: The patient is rotated to the right. EKG monitoring electrodes; overlie the abdomen. There is a ventriculoperitoneal shunt catheter looped or; coiled within the right abdomen. There are several loops of air-filled but; nondilated small bowel in the central abdomen. Air and stool is seen in a; nondistended colon. The bowel gas pattern is felt to be unremarkable.; ; Impression:; ; Right ventriculoperitoneal shunt catheter noted. Normal bowel gas pattern.; ; ; Signed by; Denver Eldridge MD 02/16/2016 04:37 P; Outcome: 15:17 Decision to Hospitalize by Provider. pc 23:41 Discharge Assessment: patient administered narcotics - no. The following High Risk yuridia Discharge criteria are identified: None. Admitted to PCU accompanied by nurse, via stretcher, on monitor, with chart. Condition: improved. No special radiology studies were completed. Property :Personal belongings accompany Pt. 23:46 Patient left the ED. yuridia Signatures: Dispatcher [employer] EDMS Brent Nevarez MD MD pc Jobson, Karen, RN ADAIR Lockett, Awilda Scanlon, RN Celia Goetz, Reg Reg gb Dianne, Lisseth, Pasting Inspector Unit ml3 Abhishek Calloway, BEHAVIORAL HEALTH CLINICIAN BEHAVIORAL HEALTH CLINICIAN kb5 Aleida Benoit,RN RN lf1 Mali Rivera RN RN jc4 Zarina Wong, BEHAVIORAL HEALTH CLINICIAN BEHAVIORAL HEALTH CLINICIAN ct3 Kiki BailonRN RN dsf Javon Tillman dem1 Hailey Cha gr2 Bar Groves,ADAIR BORRERO jf3 Dylan Mai, BEHAVIORAL HEALTH CLINICIAN BEHAVIORAL HEALTH CLINICIAN jmv Rosalie Cleary dm19 Corrections: (The following items were deleted from the chart) 12:22 12:14 Presenting complaint: Mother states: that patient has been vomiting for the past jc4 week. Melvin has coffee ground appearance. Actively vomiting in triage jc4 14:38 12:41 GI: Abdomen is distended, Bowel sounds hypoactive in left upper quadrant and left dsf lower quadrant Abd is soft X 4 quads Abd is tender to palpation in right upper quadrant and left upper quadrant Parent/caregiver reports the patient having vomiting for the past week. mother states it did get better but started again last night dsf Chart Complete MTDD
--- NOTE | 2016-02-19 12:05 | EDDOCDS ---
Physician Documentation [facility] Name: Molly Valera Age: 40 yrs Sex: Female : 1975 Arrival Date: 02/16/2016 Time: 12:08 Bed 5 Private MD: Elizabeth Ramsey PA-C Disposition: 02/15 15:16 Critical Care:. pc Disposition: 02/16/16 15:17 Hospitalization ordered by Elizabeth Ballard for Inpatient Admission. Preliminary diagnosis are Gastrointestinal hemorrhage, unspecified - upper, Tachycardia, unspecified. - Bed requested for M ICU. - Status is Inpatient Admission. yuridia - Condition is Stable. - Problem is new. - Symptoms have improved. HPI: 13:09 This 40 yrs old Female presents to ER via Wheelchair with complaints of pc Nausea/Vomiting. 13:09 The history is obtained from the patient's family/friend. pc 13:10 A reliable history and/or examination was not able to be obtained, due to patient is pc non-verbal. 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 She has had a poor appetite all week, complaining of her stomach hurting. She started to have the same emesis this morning and presents with active coffee-ground emesis. She has had a slight cough but no fevers, and otherwise has been in good health. At their worst, the symptoms were moderate. In the emergency department, the symptoms are unchanged. The patient has not experienced similar symptoms in the past. The patient has been recently seen by their primary care provider, for a routine, regularly scheduled appointment. Historical: - Allergies: no known allergies; - Home Meds: 1. omeprazole 20 mg Oral cpDR 1 cap once daily (Last dose: 02/16/2016 09:00) 2. 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 - Social history: Smoking status: Patient states was never smoker of tobacco. No barriers to communication noted, Speaks appropriately for age. - : The pt / caregiver states he / she is not on anticoagulants. Home medication list is obtained from the caregiver. - Hospitalizations: : No recent hospitalization is reported. - Exposure Risk Screening:: None identified. - Immunization history:: All immunizations up-to-date. - Family history: Not pertinent. - Social history:: the patient is a non-smoker, the patient does not drink alcohol. 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 pc Exam: 13:13 General Appearance: alert, the patient is in mild distress, actively vomiting pc coffee-ground material without dave blood.. 13:13 EENT: normal eye inspection, ears, nose and throat normal, pharynx normal, mucous membranes moist 13:13 Neck: The exam reveals no acute abnormalities. ROM is normal and painless. No nuchal rigidity is noted.. 13:13 Respiratory: no respiratory distress, normal breath sounds. 13:13 CVS: regular rhythm, normal S1 and S2, no murmurs, strong peripheral pulses, the patient is tachycardic, at 128 bpm. 13:13 Abdomen: soft, no organomegaly, normal bowel sounds, mild tenderness in the epigastric area. 13:13 Back: normal inspection. 13:13 Skin: skin color is normal, warm, dry. 13:13 Extremities: The extremities have a grossly normal appearance, are non-tender, without acute ROM abnormalities. 13:13 Neuro: no motor deficits, no sensory deficits. Vital Signs: 12:12 BP 137 / 75; Pulse 128; Resp 20 S; Temp 97.8(T); Pulse Ox 98% on R/A; Weight 47.63 kg / gr2 105.01 lbs (R); Height 5 ft. 5 in. (165.10 cm) (R); Pain 4/10; 12:35 BP 147 / 85 (auto/); dsf 12:36 Pulse 110 MON; Pulse Ox 96% ; dsf 12:50 BP 165 / 109 (auto/); dsf 12:50 Pulse 114 MON; Pulse Ox 90% ; dsf 13:19 Pulse 112 MON; dsf 13:20 BP 131 / 101 (auto/); dsf 13:35 BP 159 / 88 (auto/); dsf 13:35 Pulse 116 MON; Pulse Ox 95% ; dsf 13:50 BP 156 / 94 (auto/); dsf 13:50 Pulse 108 MON; Pulse Ox 93% ; dsf 14:05 BP 153 / 97 (auto/); dsf 14:05 Pulse 108 MON; Pulse Ox 94% ; dsf 14:20 BP 150 / 92 (auto/); dsf 14:20 Pulse 108 MON; Pulse Ox 92% ; dsf 14:35 BP 151 / 94 (auto/); dsf 14:35 Pulse 108 MON; Pulse Ox 95% ; dsf 14:50 BP 158 / 96 (auto/); dsf 14:50 Pulse 104 MON; Pulse Ox 96% ; dsf 15:05 BP 159 / 93 (auto/); dsf 15:05 Pulse 100 MON; Pulse Ox 96% ; dsf 15:20 BP 150 / 101 (auto/); dsf 15:20 Pulse 100 MON; Pulse Ox 94% ; dsf 15:35 BP 156 / 109 (auto/); dsf 15:35 Pulse 128 MON; dsf 15:49 Pulse 150 MON; dsf 15:50 BP 161 / 96 (auto/); dsf 16:05 BP 135 / 80 (auto/); dsf 16:05 Pulse 122 MON; Pulse Ox 94% ; dsf 16:20 BP 132 / 77 (auto/); dsf 16:20 Pulse 110 MON; Pulse Ox 93% ; dsf 16:35 BP 136 / 76 (auto/); dsf 16:35 Pulse 106 MON; Pulse Ox 95% ; dsf 16:50 BP 133 / 79 (auto/); dsf 16:50 Pulse 102 MON; Pulse Ox 94% ; dsf 17:05 BP 140 / 78 (auto/); dsf 17:05 Pulse 100 MON; Pulse Ox 94% ; dsf 17:20 BP 140 / 81 (auto/); dsf 17:20 Pulse 102 MON; Pulse Ox 94% ; dsf 17:35 BP 129 / 78 (auto/); lf1 17:35 Pulse 104 MON; Pulse Ox 95% ; lf1 17:50 BP 136 / 78 (auto/); lf1 17:50 Pulse 100 MON; Pulse Ox 94% ; lf1 18:04 Pulse 100 MON; Pulse Ox 93% ; lf1 18:05 BP 136 / 77 (auto/); lf1 18:19 Pulse 100 MON; Pulse Ox 92% ; lf1 18:20 BP 128 / 69 (auto/); lf1 18:34 Pulse 100 MON; Pulse Ox 92% ; lf1 18:35 BP 120 / 70 (auto/); lf1 18:49 Pulse 104 MON; Pulse Ox 92% ; lf1 18:50 BP 121 / 68 (auto/); lf1 19:02 Pulse 98 MON; Pulse Ox 90% ; lf1 19:05 BP 129 / 67 (auto/); lf1 19:16 Pulse 100 MON; Resp 18; Pulse Ox 90% ; lf1 19:20 BP 128 / 68 (auto/); lf1 19:20 Pulse 100 MON; Pulse Ox 89% ; lf1 19:35 BP 125 / 61 (auto/); lf1 19:35 Pulse 98 MON; Pulse Ox 89% ; lf1 19:50 BP 132 / 68 (auto/); lf1 19:50 Pulse 98 MON; Pulse Ox 88% ; lf1 20:05 BP 138 / 75 (auto/); lf1 20:05 Pulse 104 MON; lf1 20:20 BP 139 / 76 (auto/); lf1 20:20 Pulse 104 MON; lf1 20:35 BP 143 / 80 (auto/); lf1 20:35 Pulse 100 MON; lf1 20:50 BP 135 / 73 (auto/); lf1 20:50 Pulse 100 MON; Pulse Ox 96% ; lf1 21:05 BP 131 / 70 (auto/); lf1 21:05 Pulse 96 MON; Pulse Ox 93% ; lf1 21:20 BP 126 / 67 (auto/); lf1 21:20 Pulse 104 MON; Pulse Ox 93% ; lf1 21:35 BP 129 / 67 (auto/); lf1 21:35 Pulse 102 MON; Pulse Ox 93% ; lf1 21:50 BP 119 / 66 (auto/); lf1 21:50 Pulse 102 MON; Pulse Ox 90% ; lf1 22:05 BP 141 / 72 (auto/); lf1 22:05 Pulse 102 MON; Pulse Ox 91% ; lf1 22:17 Pulse 102 MON; Resp 16; Pulse Ox 90% ; lf1 23:25 BP 119 / 68; Pulse 98; Resp 20; Temp 98.6(TE); Pulse Ox 95% on R/A; jmv 12:12 Body Mass Index 17.47 (47.63 kg, 165.10 cm) gr2 MDM: 13:08 IV Saline Lock ordered. pc 13:08 Supervisor Sample/Pulse Ox/q 30 min VS ordered. pc 13:08 pantoprazole 80 mg IV at bolus once ordered. pc 13:08 NS 0.9% 1000 ml IV at bolus once ordered. pc 13:08 Ondansetron 4 mg IVP once ordered. pc 13:09 NOTHING BY MOUTH+DIET ordered. EDMS 13:09 CBC with Diff Ordered. EDMS 13:09 MED Profile Ordered. EDMS 13:09 Liver Profile Ordered. EDMS 13:09 Pt & Aptt Ordered. EDMS 13:09 Type & Screen Ordered. EDMS 13:13 Differential Diagnosis: UGI bleed, known esophagitis. Plan: labs, meds, IVF. pc 13:31 [facility] Payment Agreement was scanned into [employer] and attached to record. [id number] 13:32 Financial registration complete. dm19 14:36 CBC with Diff Reviewed. pc 14:36 Pt & Aptt Reviewed. pc 14:47 MED Profile Reviewed. pc 14:47 Liver Profile Reviewed. pc 14:52 BED REQUEST+ADM ordered. EDMS 14:52 Data reviewed: old medical records, vital signs, nurses notes, lab test results, all pc radiology studies and available results. Test interpretation: LAB - all labs as ordered have been reviewed, interpreted and considered in the overall management of the clinical presentation;. 14:54 Chest, 1 View Ordered. EDMS 14:54 ECG WITH READING ER PHYS+CARDIAG ordered. EDMS 15:07 HEMOGLOBIN & HEMATOCRIT Ordered. EDMS 15:07 Test interpretation: EKG. pc 15:16 Test interpretation: X-RAY - interpreted by Radiologist and personally reviewed, 1 view pc chest no acute disease. The patient has been re-examined and re-evaluated. The patient's symptoms have markedly improved after treatment. Physician consultation: Dr. Brian Gallego MD regarding consult, and will see patient in inpatient room. 15:16 Physician consultation: Dr. Elizabeth Ballard regarding admission. Disposition: The historical points, examination findings, and any diagnostic results supporting the provided diagnosis, were discussed with the patient or legal guardian. The need for further work-up and/or treatment in the hospital was explained. 15:30 MAGNESIUM LEVEL Ordered. EDMS 16:02 Abdomen,Flat Plate KUB Ordered. EDMS 16:33 Admission / Observation Status ordered. EDMS 19:31 CBC WITH DIFFERENTIAL Ordered. EDMS 19:32 BASIC METABOLIC PROFILE Ordered. EDMS 19:32 MAGNESIUM LEVEL Ordered. EDMS 19:32 HEMOGLOBIN & HEMATOCRIT Ordered. EDMS 19:32 HEMOGLOBIN & HEMATOCRIT Ordered. EDMS 23:43 MRSA SCREEN Ordered. EDMS 02/16 09:12 ECG/EKG was scanned into [employer] and attached to record. EC/07 15:07 Rate is 102 beats/min. Rhythm is regular, Sinus tachycardia. QRS [place] is Normal. [place] pc interval is normal. QRS interval is normal. QT interval is normal. No Q waves. T waves are Normal. No ST changes noted. Clinical impression: Sinus tachycardia. Administered Medications: 13:25 Drug: NS 0.9% 1000 ml [sodium chloride 0.9 % injection solution] Route: IV; Rate: jf3 bolus; Site: left hand; 17:53 Follow up: IV Status: Completed infusion; IV Intake: 1000ml [facility] 13:27 Drug: Ondansetron 4 mg [ondansetron HCl 2 mg/mL intravenous solution (2 mL)] Route: jf3 IVP; Site: left hand; 13:30 Drug: pantoprazole 80 mg [pantoprazole 40 mg intravenous solution] Route: IV; Rate: jf3 bolus; Site: left hand; 18:36 Follow up: IV Status: Completed infusion [facility] Critical Care Time: 15:16 Critical care time: Bedside Care: 20 minutes, Consultation: 20 minutes, Family pc Intervention: 10 minutes. Total time: 50 minutes Signatures: Dis[facility] EDPA Brent Nevarez MD MD pc Newman, Jill New, RN RN jan Barnhardt, Gloria, Reg Reg gb Naina DeanMarkosImelda, Layout Artist Unit ml3 Mali Rivera RN RN jc4 Rosalie Cleary Desiree RN f [place] RN jf3 The chart was reviewed and I authenticate all verbal orders and agree with the evaluation and treatment provided.Corrections: (The following items were deleted from the chart) 15:09 15:07 HEMOGLOBIN & HEMATOCRIT ordered. EDPA EDMS 15:30 15:07 MAGNESIUM LEVEL ordered. EDPA EDMS Attachments: 13:31 [facility] Payment Agreement [email or web address] 02/16 09:12 ECG/EKG gb Chart Complete MTDD
--- NOTE | 2016-02-19 12:05 | EDDOCDS ---
Physician Documentation [facility] Name: Molly Valera Age: 40 yrs Sex: Female : 1975 Arrival Date: 02/16/2016 Time: 12:08 Bed 5 Private MD: Elizabeth Ramsey PA-C Disposition: 02/15 15:16 Critical Care:. pc Disposition: 02/16/16 15:17 Hospitalization ordered by Elizabeth Ballard for Inpatient Admission. Preliminary diagnosis are Gastrointestinal hemorrhage, unspecified - upper, Tachycardia, unspecified. - Bed requested for M ICU. - Status is Inpatient Admission. yuridia - Condition is Stable. - Problem is new. - Symptoms have improved. HPI: 13:09 This 40 yrs old Female presents to ER via Wheelchair with complaints of pc Nausea/Vomiting. 13:09 The history is obtained from the patient's family/friend. pc 13:10 A reliable history and/or examination was not able to be obtained, due to patient is pc non-verbal. 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 She has had a poor appetite all week, complaining of her stomach hurting. She started to have the same emesis this morning and presents with active coffee-ground emesis. She has had a slight cough but no fevers, and otherwise has been in good health. At their worst, the symptoms were moderate. In the emergency department, the symptoms are unchanged. The patient has not experienced similar symptoms in the past. The patient has been recently seen by their primary care provider, for a routine, regularly scheduled appointment. Historical: - Allergies: no known allergies; - Home Meds: 1. omeprazole 20 mg Oral cpDR 1 cap once daily (Last dose: 02/16/2016 09:00) 2. 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 - Social history: Smoking status: Patient states was never smoker of tobacco. No barriers to communication noted, Speaks appropriately for age. - : The pt / caregiver states he / she is not on anticoagulants. Home medication list is obtained from the caregiver. - Hospitalizations: : No recent hospitalization is reported. - Exposure Risk Screening:: None identified. - Immunization history:: All immunizations up-to-date. - Family history: Not pertinent. - Social history:: the patient is a non-smoker, the patient does not drink alcohol. 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 pc Exam: 13:13 General Appearance: alert, the patient is in mild distress, actively vomiting pc coffee-ground material without dave blood.. 13:13 EENT: normal eye inspection, ears, nose and throat normal, pharynx normal, mucous membranes moist 13:13 Neck: The exam reveals no acute abnormalities. ROM is normal and painless. No nuchal rigidity is noted.. 13:13 Respiratory: no respiratory distress, normal breath sounds. 13:13 CVS: regular rhythm, normal S1 and S2, no murmurs, strong peripheral pulses, the patient is tachycardic, at 128 bpm. 13:13 Abdomen: soft, no organomegaly, normal bowel sounds, mild tenderness in the epigastric area. 13:13 Back: normal inspection. 13:13 Skin: skin color is normal, warm, dry. 13:13 Extremities: The extremities have a grossly normal appearance, are non-tender, without acute ROM abnormalities. 13:13 Neuro: no motor deficits, no sensory deficits. Vital Signs: 12:12 BP 137 / 75; Pulse 128; Resp 20 S; Temp 97.8(T); Pulse Ox 98% on R/A; Weight 47.63 kg / gr2 105.01 lbs (R); Height 5 ft. 5 in. (165.10 cm) (R); Pain 4/10; 12:35 BP 147 / 85 (auto/); dsf 12:36 Pulse 110 MON; Pulse Ox 96% ; dsf 12:50 BP 165 / 109 (auto/); dsf 12:50 Pulse 114 MON; Pulse Ox 90% ; dsf 13:19 Pulse 112 MON; dsf 13:20 BP 131 / 101 (auto/); dsf 13:35 BP 159 / 88 (auto/); dsf 13:35 Pulse 116 MON; Pulse Ox 95% ; dsf 13:50 BP 156 / 94 (auto/); dsf 13:50 Pulse 108 MON; Pulse Ox 93% ; dsf 14:05 BP 153 / 97 (auto/); dsf 14:05 Pulse 108 MON; Pulse Ox 94% ; dsf 14:20 BP 150 / 92 (auto/); dsf 14:20 Pulse 108 MON; Pulse Ox 92% ; dsf 14:35 BP 151 / 94 (auto/); dsf 14:35 Pulse 108 MON; Pulse Ox 95% ; dsf 14:50 BP 158 / 96 (auto/); dsf 14:50 Pulse 104 MON; Pulse Ox 96% ; dsf 15:05 BP 159 / 93 (auto/); dsf 15:05 Pulse 100 MON; Pulse Ox 96% ; dsf 15:20 BP 150 / 101 (auto/); dsf 15:20 Pulse 100 MON; Pulse Ox 94% ; dsf 15:35 BP 156 / 109 (auto/); dsf 15:35 Pulse 128 MON; dsf 15:49 Pulse 150 MON; dsf 15:50 BP 161 / 96 (auto/); dsf 16:05 BP 135 / 80 (auto/); dsf 16:05 Pulse 122 MON; Pulse Ox 94% ; dsf 16:20 BP 132 / 77 (auto/); dsf 16:20 Pulse 110 MON; Pulse Ox 93% ; dsf 16:35 BP 136 / 76 (auto/); dsf 16:35 Pulse 106 MON; Pulse Ox 95% ; dsf 16:50 BP 133 / 79 (auto/); dsf 16:50 Pulse 102 MON; Pulse Ox 94% ; dsf 17:05 BP 140 / 78 (auto/); dsf 17:05 Pulse 100 MON; Pulse Ox 94% ; dsf 17:20 BP 140 / 81 (auto/); dsf 17:20 Pulse 102 MON; Pulse Ox 94% ; dsf 17:35 BP 129 / 78 (auto/); lf1 17:35 Pulse 104 MON; Pulse Ox 95% ; lf1 17:50 BP 136 / 78 (auto/); lf1 17:50 Pulse 100 MON; Pulse Ox 94% ; lf1 18:04 Pulse 100 MON; Pulse Ox 93% ; lf1 18:05 BP 136 / 77 (auto/); lf1 18:19 Pulse 100 MON; Pulse Ox 92% ; lf1 18:20 BP 128 / 69 (auto/); lf1 18:34 Pulse 100 MON; Pulse Ox 92% ; lf1 18:35 BP 120 / 70 (auto/); lf1 18:49 Pulse 104 MON; Pulse Ox 92% ; lf1 18:50 BP 121 / 68 (auto/); lf1 19:02 Pulse 98 MON; Pulse Ox 90% ; lf1 19:05 BP 129 / 67 (auto/); lf1 19:16 Pulse 100 MON; Resp 18; Pulse Ox 90% ; lf1 19:20 BP 128 / 68 (auto/); lf1 19:20 Pulse 100 MON; Pulse Ox 89% ; lf1 19:35 BP 125 / 61 (auto/); lf1 19:35 Pulse 98 MON; Pulse Ox 89% ; lf1 19:50 BP 132 / 68 (auto/); lf1 19:50 Pulse 98 MON; Pulse Ox 88% ; lf1 20:05 BP 138 / 75 (auto/); lf1 20:05 Pulse 104 MON; lf1 20:20 BP 139 / 76 (auto/); lf1 20:20 Pulse 104 MON; lf1 20:35 BP 143 / 80 (auto/); lf1 20:35 Pulse 100 MON; lf1 20:50 BP 135 / 73 (auto/); lf1 20:50 Pulse 100 MON; Pulse Ox 96% ; lf1 21:05 BP 131 / 70 (auto/); lf1 21:05 Pulse 96 MON; Pulse Ox 93% ; lf1 21:20 BP 126 / 67 (auto/); lf1 21:20 Pulse 104 MON; Pulse Ox 93% ; lf1 21:35 BP 129 / 67 (auto/); lf1 21:35 Pulse 102 MON; Pulse Ox 93% ; lf1 21:50 BP 119 / 66 (auto/); lf1 21:50 Pulse 102 MON; Pulse Ox 90% ; lf1 22:05 BP 141 / 72 (auto/); lf1 22:05 Pulse 102 MON; Pulse Ox 91% ; lf1 22:17 Pulse 102 MON; Resp 16; Pulse Ox 90% ; lf1 23:25 BP 119 / 68; Pulse 98; Resp 20; Temp 98.6(TE); Pulse Ox 95% on R/A; jmv 12:12 Body Mass Index 17.47 (47.63 kg, 165.10 cm) gr2 MDM: 13:08 IV Saline Lock ordered. pc 13:08 Chicken Cleaner/Pulse Ox/q 30 min VS ordered. pc 13:08 pantoprazole 80 mg IV at bolus once ordered. pc 13:08 NS 0.9% 1000 ml IV at bolus once ordered. pc 13:08 Ondansetron 4 mg IVP once ordered. pc 13:09 NOTHING BY MOUTH+DIET ordered. EDMS 13:09 CBC with Diff Ordered. EDMS 13:09 MED Profile Ordered. EDMS 13:09 Liver Profile Ordered. EDMS 13:09 Pt & Aptt Ordered. EDMS 13:09 Type & Screen Ordered. EDMS 13:13 Differential Diagnosis: UGI bleed, known esophagitis. Plan: labs, meds, IVF. pc 13:31 [facility] Payment Agreement was scanned into [employer] and attached to record. [id number] 13:32 Financial registration complete. dm19 14:36 CBC with Diff Reviewed. pc 14:36 Pt & Aptt Reviewed. pc 14:47 MED Profile Reviewed. pc 14:47 Liver Profile Reviewed. pc 14:52 BED REQUEST+ADM ordered. EDMS 14:52 Data reviewed: old medical records, vital signs, nurses notes, lab test results, all pc radiology studies and available results. Test interpretation: LAB - all labs as ordered have been reviewed, interpreted and considered in the overall management of the clinical presentation;. 14:54 Chest, 1 View Ordered. EDMS 14:54 ECG WITH READING ER PHYS+CARDIAG ordered. EDMS 15:07 HEMOGLOBIN & HEMATOCRIT Ordered. EDMS 15:07 Test interpretation: EKG. pc 15:16 Test interpretation: X-RAY - interpreted by Radiologist and personally reviewed, 1 view pc chest no acute disease. The patient has been re-examined and re-evaluated. The patient's symptoms have markedly improved after treatment. Physician consultation: Dr. Brian Gallego MD regarding consult, and will see patient in inpatient room. 15:16 Physician consultation: Dr. Elizabeth Ballard regarding admission. Disposition: The historical points, examination findings, and any diagnostic results supporting the provided diagnosis, were discussed with the patient or legal guardian. The need for further work-up and/or treatment in the hospital was explained. 15:30 MAGNESIUM LEVEL Ordered. EDMS 16:02 Abdomen,Flat Plate KUB Ordered. EDMS 16:33 Admission / Observation Status ordered. EDMS 19:31 CBC WITH DIFFERENTIAL Ordered. EDMS 19:32 BASIC METABOLIC PROFILE Ordered. EDMS 19:32 MAGNESIUM LEVEL Ordered. EDMS 19:32 HEMOGLOBIN & HEMATOCRIT Ordered. EDMS 19:32 HEMOGLOBIN & HEMATOCRIT Ordered. EDMS 23:43 MRSA SCREEN Ordered. EDMS 02/16 09:12 ECG/EKG was scanned into [employer] and attached to record. EC/07 15:07 Rate is 102 beats/min. Rhythm is regular, Sinus tachycardia. QRS [place] is Normal. MD pc interval is normal. QRS interval is normal. QT interval is normal. No Q waves. T waves are Normal. No ST changes noted. Clinical impression: Sinus tachycardia. Administered Medications: 13:25 Drug: NS 0.9% 1000 ml [sodium chloride 0.9 % injection solution] Route: IV; Rate: jf3 bolus; Site: left hand; 17:53 Follow up: IV Status: Completed infusion; IV Intake: 1000ml [facility] 13:27 Drug: Ondansetron 4 mg [ondansetron HCl 2 mg/mL intravenous solution (2 mL)] Route: jf3 IVP; Site: left hand; 13:30 Drug: pantoprazole 80 mg [pantoprazole 40 mg intravenous solution] Route: IV; Rate: jf3 bolus; Site: left hand; 18:36 Follow up: IV Status: Completed infusion [facility] Critical Care Time: 15:16 Critical care time: Bedside Care: 20 minutes, Consultation: 20 minutes, Family pc Intervention: 10 minutes. Total time: 50 minutes Signatures: [facility] Brent Nevarez MD MD pc Newman, Jill New, RN RN jan Barnhardt, Gloria, Reg Reg gb Naina DeanMarkosImelda, Mock Up Assembler Unit ml3 Mali Rivera RN RN jc4 Rosalie Cleary Desiree RN f [place] RN jf3 The chart was reviewed and I authenticate all verbal orders and agree with the evaluation and treatment provided.Corrections: (The following items were deleted from the chart) 15:09 15:07 HEMOGLOBIN & HEMATOCRIT ordered. EDDC EDMS 15:30 15:07 MAGNESIUM LEVEL ordered. EDDC EDMS Attachments: 13:31 [facility] Payment Agreement [email or web address] 02/16 09:12 ECG/EKG gb Chart Complete MTDD
== END 2016-02-18 15:52 | disposition home or self-care (01) | DRG 377 ==
LOC: M ED 12:08 → M ED INP 16:30 → M ICU 23:44
PROVIDERS: ADMIT Hospitalist; ATTEND Internal Medicine
DX: K92.2 Gastrointestinal hemorrhage, unspecified (principal); G80.0 Spastic quadriplegic cerebral palsy; D62 Acute posthemorrhagic anemia; K22.11 Ulcer of esophagus with bleeding; K22.8 Other specified diseases of esophagus; Q03.9 Congenital hydrocephalus, unspecified; K21.9 Gastro-esophageal reflux disease without esophagitis; K59.00 Constipation, unspecified; K44.9 Diaphragmatic hernia without obstruction or gangrene; F71 Moderate intellectual disabilities; Z98.2 Presence of cerebrospinal fluid drainage device; Z79.899 Other long term (current) drug therapy

== ENCOUNTER 2018-04-20 20:55 | Emergency (ER) | payer MEDICARE, MEDICAID ==
[~2018-04-20] VITALS: Ht 154.9 cm; Wt 50.0 kg
[~2018-04-20 20:55] MED LIST changes: +DOCU100T8 PO; +DOCU10ELUD PO; +PROT1TAB2 PO; +SENN18TA PO; +SUCR1SS PO; -[UNRECOGNIZED DRUG - SUPPLY] [1,]; +[UNRECOGNIZED DRUG - SUPPLY] {1, null}
[2018-04-20 23:06] LABS: APPEARANCE, URINE CLOUDY (CLEAR); BACTERIA, URINE AUTO 2+ (NEGATIVE); BILIRUBIN, URINE AUTO NEGATIVE (NEGATIVE); BLOOD, URINE BLOOD 3+ (NEGATIVE); COLOR, URINE YELLOW (YELLOW); GLUCOSE, URINE (UA) AUTO 1+ mg/dL (NEGATIVE); KETONE, URINE AUTO NEGATIVE (NEGATIVE); LEUKOCYTE ESTERASE, URINE AUTO 3+ (NEGATIVE); MUCUS, URINE SMALL (NEGATIVE); NITRITE, URINE AUTO POSITIVE (NEGATIVE); PROTEIN, URINE AUTO 2+ mg/dL (NEGATIVE); RBC, URINE AUTO 137 /HPF (0-3); SPECIFIC GRAVITY URINE AUTO 1.023 (1.002-1.035); SQUAMOUS EPITHELIAL CELL UR AU 1 /HPF (0-6); UROBILINOGEN, URINE AUTO 0.2 mg/dL (0.0-2.0); WBC, URINE AUTO TNTC /HPF (0-3)
[2018-04-20] MEDS ORDERED: AUGM250S13 PO (23:36)
[2018-04-20] MEDS ORDERED: AUGMENTIN BID 400MG/5ML SUSP 50ML BTL PO ONE (23:45)
[2018-04-21 00:21] VITALS: BP 116/68
--- NOTE | 2018-04-21 08:36 | REP ---
AP PORTABLE SUPINE CHEST: 04/20/2018. Comparison: 02/16/2016. Clinical history: Cough. Lungs are slightly hypoinflated. There is peribronchial thickening in the perihilar regions and streaky densities suggesting bronchitis. I do not see dense consolidation with air bronchograms. No layering effusion. Heart size not enlarged for portable technique. Previous right sided BANKRUPTCY JUDGE shunt catheter has been exchanged for a left sided BANKRUPTCY JUDGE shunt catheter coursing over the chest and into the upper abdomen. Impression: 1. Perihilar changes of bronchitis with streaky densities. No dense consolidation with air bronchograms or definite layering effusion. Electronically Signed by Agustin Soto MD 04/21/2018 09:43 P
[2018-04-23] MEDS ORDERED: CEPH250REC PEG (18:36)
== END 2018-04-21 00:40 | disposition home or self-care (01) ==
LOC: M ED 20:55 → EDBD 20:55 → M ED 04-21 00:40
DX: K94.29 Other complications of gastrostomy (principal); N39.0 Urinary tract infection, site not specified; Q03.1 Atresia of foramina of Magendie and Luschka; R41.89 Other symptoms and signs involving cognitive functions and awareness; Z79.899 Other long term (current) drug therapy

== ENCOUNTER → 2022-01-15 | Outpatient (REF) | payer MEDICARE, MEDICAID ==
[~2022-01-15] MED LIST changes: -/MOM400 PO; -/ONDA4TA; -/SUCR1TA; +AUGM250S13 PO; +CEPH250REC PEG; +MILK10SU PO; +OMEP1CAP73 PO; +ONDA-1; +SUCR1TAB56
== END ==
LOC: M SFHCADAM 11:29
PROVIDERS: ATTEND Family Medicine
DX: Z00.00 Encounter for general adult medical examination without abnormal findings (principal); Z53.9 Procedure and treatment not carried out, unspecified reason

== ENCOUNTER → 2023-03-17 | Outpatient (REF) | payer MEDICARE, MEDICAID ==
[~2023-03-17] MED LIST changes: +SENN-111 PO; -SENN18TA PO
== END ==
LOC: M SFHCADAM 17:42
PROVIDERS: ATTEND Family Medicine
DX: R05.3 Chronic cough (principal)

== ENCOUNTER → 2024-06-13 | Outpatient (CLI) | payer MEDICARE, MEDICAID ==
[~2024-06-13] MED LIST changes: -SENN-111 PO; +SENN-165 PO
== END ==
LOC: M ADAMS 14:29
PROVIDERS: ATTEND Family Medicine
DX: R05.3 Chronic cough (principal)

== ENCOUNTER → 2024-06-13 | Outpatient (REF) | payer MEDICARE, MEDICAID ==
[2024-06-13 17:24] LABS: BASO # 0.1 10^3/uL (0.0-0.2); BASO % 0.7 % (0.0-1.0); EOS # 0.3 10^3/uL (0.0-0.5); EOS % 3.2 % (0.0-3.0); HEMATOCRIT 48.1 % (36.0-47.0); HEMOGLOBIN 14.8 g/dl (12.0-15.5); LYMPH # 1.5 10^3/uL (1.5-5.0); LYMPH % 16.3 % (24.0-44.0); MEAN CORPUSCULAR HEMOGLOBIN 26.7 pg (27.0-33.0); MEAN CORPUSCULAR HGB CONC 30.8 g/dl (32.0-36.5); MEAN CORPUSCULAR VOLUME 86.7 fl (80.0-96.0); MONO # 0.7 10^3/uL (0.0-0.8); MONO % 7.9 % (2.0-8.0); NEUTROPHILS # 6.4 10^3/uL (1.5-8.5); NEUTROPHILS % 71.6 % (36.0-66.0); PLATELET COUNT, AUTOMATED 288 10^3/uL (150-450); RED BLOOD COUNT 5.55 10^6/uL (4.00-5.40); WHITE BLOOD COUNT 8.9 10^3/uL (4.0-10.0)
[2024-06-13 17:35] LABS: ALBUMIN 3.4 G/DL (3.2-5.2); ALKALINE PHOSPHATASE 130 U/L (35-104); ALT/SGPT 31 U/L (7.0-40); AST/SGOT 21 U/L (<34); BILIRUBIN,TOTAL 0.4 MG/DL (0.3-1.2); BLOOD UREA NITROGEN 11 MG/DL (9-23); CALCIUM LEVEL 9.3 MG/DL (8.5-10.1); CARBON DIOXIDE LEVEL 23 MMOL/L (20-31); CHLORIDE LEVEL 105 MMOL/L (98-107); CHOLESTEROL LEVEL 178 MG/DL (<200); CHOLESTEROL RISK RATIO 6.18 (<5); CREATININE FOR GFR 0.46 MG/DL (0.55-1.30); GLOMERULAR FILTRATION RATE > 90.0 (>58); GLUCOSE, FASTING 69 MG/DL (60-100); HDL CHOLESTEROL 28.8 MG/DL (>40); LDL CHOLESTEROL 119.8 MG/DL (<100); NON-HDL-C 149.2 MG/DL; POTASSIUM SERUM 4.9 MMOL/L (3.5-5.1); SODIUM LEVEL 140 MMOL/L (136-145); TOTAL PROTEIN 6.8 G/DL (5.7-8.2); TRIGLYCERIDES LEVEL 147 MG/DL (<150)
[2024-06-13 17:38] LABS: THYROID STIMULATING HORMONE 2.427 uIU/ML (0.55-4.78)
== END ==
LOC: M SFHCADAM 14:00
PROVIDERS: ATTEND Family Medicine
DX: Z00.00 Encounter for general adult medical examination without abnormal findings (principal); R05.9 Cough, unspecified; E78.00 Pure hypercholesterolemia, unspecified

== ENCOUNTER → 2024-11-21 | Outpatient (REF) | payer MEDICARE, MEDICAID ==
[2024-11-21 17:33] LABS: BASO # 0.1 10^3/uL (0.0-0.2); BASO % 0.8 % (0.0-1.0); EOS # 0.2 10^3/uL (0.0-0.5); EOS % 2.9 % (0.0-3.0); LYMPH # 1.3 10^3/uL (1.5-5.0); LYMPH % 20.7 % (24.0-44.0); MONO # 0.5 10^3/uL (0.0-0.8); MONO % 7.8 % (2.0-8.0); NEUTROPHILS # 4.2 10^3/uL (1.5-8.5); NEUTROPHILS % 67.5 % (36.0-66.0); PLATELET COUNT, AUTOMATED 320 10^3/uL (150-450)
[2024-11-21 17:53] LABS: ALT/SGPT 20 U/L (7.0-40); AST/SGOT < 8 U/L (<34); CALCIUM LEVEL 9.2 MG/DL (8.5-10.1); CARBON DIOXIDE LEVEL 24 MMOL/L (20-31); CHLORIDE LEVEL 108 MMOL/L (98-107); CHOLESTEROL LEVEL 168 MG/DL (<200); CHOLESTEROL RISK RATIO 4.65 (<5); CREATININE FOR GFR 0.46 MG/DL (0.55-1.30); GLOMERULAR FILTRATION RATE > 90.0 (>58); LDL CHOLESTEROL 115.3 MG/DL (<100); NON-HDL-C 131.9 MG/DL; POTASSIUM SERUM 4.3 MMOL/L (3.5-5.1); SODIUM LEVEL 143 MMOL/L (136-145); TRIGLYCERIDES LEVEL 83 MG/DL (<150)
[2024-11-21 17:55] LABS: FREE T4 1.30 NG/DL (0.89-1.76)
== END ==
LOC: M SFHCADAM 12:07
PROVIDERS: ATTEND Family Medicine
DX: Z00.00 Encounter for general adult medical examination without abnormal findings (principal); Z79.899 Other long term (current) drug therapy